=== PATIENT | female | born 1955 | race American Indian/Alaskan Native ===

== ENCOUNTER 2018-04-03 19:19 | Emergency (ER) | payer SELFPAY ==
[2018-04-03 19:32] VITALS: BMI 26.2
[2018-04-03 19:36] VITALS: TEMP 98.5
--- NOTE | 2018-04-03 19:57 | ED PDOC ---
Arrival/HPI - General Chief Complaint: Abdominal Pain Time Seen by Provider: 04/03/18 19:37 Historian: Patient - History of Present Illness Narrative History of Present Illness (Text): 04/03/18 19:54 62-year-old female presents today with a "discomfort" feeling in the chest and abdomen. Patient states intermittently for the past 3 weeks she has been having this what she describes as a heaviness feeling in the left side of the chest. Patient states symptoms seem to be worse after eating. She denies nausea vomiting diarrhea or constipation. No chest fevers or chills. She denies urinary symptoms. Patient states the pain has been worsening over the past week and has been coming more frequently. Patient states she also has been having some slight back pain. She is unable to describe the back pain but states that it does not radiate from the abdomen to the back. Patient denies numbness weakness or tingling in the extremities. No bladder or bowel incontinence. No other complaints. Symptom Onset: Gradual Symptom Course: Intermittent, Worsening Quality: Pressure (heaviness) Severity Level: Mild Past Medical History - Provider Review Nursing Documentation Reviewed: Yes - Travel History Have you recently traveled outside [place] w/in the past 3 mons?: No - Infectious Disease Hx of Infectious Diseases: None - Reproductive Menopause: Yes - Cardiac Hx Hypertension: Yes - Pulmonary Hx Respiratory Disorders: No - Neurological Hx Neurological Disorder: No - HEENT Hx HEENT Disorder: No - Renal Hx Renal Disorder: No - Endocrine/Metabolic Hx Endocrine Disorders: No - Hematological/Oncological Hx Blood Disorders: No - Integumentary Hx Dermatological Disorder: No - Musculoskeletal/Rheumatological Hx Musculoskeletal Disorders: No - Gastrointestinal Hx Gastrointestinal Disorders: No - Genitourinary/Gynecological Hx Genitourinary Disorders: No - Psychiatric Hx Psychophysiologic Disorder: No Hx Substance Use: No - Surgical History Other/Comment: myomectomy 1992 - Anesthesia Hx Anesthesia: No Hx Anesthesia Reactions: No Hx Malignant Hyperthermia: No Family/Social History - Physician Review Nursing Documentation Reviewed: Yes Family/Social History: Unknown Family HX Smoking Status: Never Smoked Hx Alcohol Use: No Hx Substance Use: No Allergies/Home Meds Allergies/Adverse Reactions: Allergies No Known Allergies Allergy (Verified 09/08/15 05:29) Home Medications: Home Meds Medication Instructions Recorded Confirmed amLODIPine [Norvasc] 10 mg PO DAILY 04/03/18 04/03/18 Review of Systems - Review of Systems Constitutional: absent: Fatigue, Fevers Respiratory: absent: SOB, Cough Cardiovascular: Chest Pain. absent: Palpitations Gastrointestinal: Abdominal Pain. absent: Constipation, Diarrhea, Nausea, Vomiting Genitourinary Female: absent: Dysuria, Frequency, Hematuria Musculoskeletal: Back Pain. absent: Arthralgias, Neck Pain Skin: absent: Rash, Pruritis Neurological: absent: Headache, Dizziness Psychiatric: absent: Anxiety, Depression Physical Exam Vital Signs Reviewed: Yes Vital Signs Temp Pulse Resp BP Pulse Ox 04/03/18 19:20 98.5 F 77 16 115/71 98 Temperature: Afebrile Blood Pressure: Normal Pulse: Regular Respiratory Rate: Normal Appearance: Positive for: Well-Appearing, Non-Toxic, Comfortable Pain Distress: None Mental Status: Positive for: Alert and Oriented X 3 - Systems Exam Head: Present: Atraumatic Mouth: Present: Moist Mucous Membranes Neck: Present: Normal Range of Motion Respiratory/Chest: Present: Clear to Auscultation, Good Air Exchange. No: Respiratory Distress, Accessory Muscle Use Cardiovascular: Present: Regular Rate and Rhythm, Normal S1, S2. No: Murmurs Abdomen: No: Tenderness, Distention, Peritoneal Signs, Rebound, Guarding Back: Present: Normal Inspection. No: CVA Tenderness, Midline Tenderness, Paraspinal Tenderness Upper Extremity: Present: Normal Inspection Lower Extremity: Present: Normal Inspection. No: Edema Neurological: Present: GCS=15, Speech Normal Skin: Present: Warm, Dry, Normal Color. No: Rashes Psychiatric: Present: Alert, Oriented x 3 Medical Decision Making ED Course and Treatment: 04/03/18 19:56 Patient is nontoxic well appearing with stable vital signs presenting with heaviness in chest and upper abdominal pain CBC: wnl CMP: wnl Lipase Wnl trop: wnl cxr; wnl Urinalysis: CAT scan FINDINGS: LUNG BASES: The lung bases appear clear. No pleural effusions are seen. LIVER: Unremarkable. GALLBLADDER AND BILE DUCTS: The gallbladder appears within normal limits. No radioopaque gallstones are seen. No biliary ductal dilatation is evident. PANCREAS: Unremarkable. SPLEEN: Unremarkable. ADRENAL GLANDS: Unremarkable. KIDNEYS, URETERS, AND BLADDER: The kidneys appear within normal limits. There is no hydronephrosis or hydroureter. No urinary calculi are seen. STOMACH AND BOWEL: Unremarkable appearance of the stomach and bowel. No evidence of bowel obstruction. No evidence suggesting enteritis or colitis. APPENDIX: No evidence of acute appendicitis on CT examination. PERITONEUM: No free fluid. No free air. LYMPH NODES: No lymphadenopathy is evident. REPRODUCTIVE: The uterus is markedly enlarged and contains multiple masses consistent with fibroids. The ovaries are not seen with certainty. VASCULATURE: No evidence of abdominal aortic aneurysm. BONES: No aggressive appearing osseous lesion. No acute osseous pathology evident. IMPRESSION: The uterus is markedly enlarged and contains multiple masses consistent with fibroids. The ovaries are not seen with certainty. Consider follow up with MRI. Patient reassessment: pt resting comfortably in er. Discussed all results with patient in depth. pt states she has hx of fibroids. asa given po case discussed with dr. estes; accepts observational status to remote tele. Impression: chest pain, abdominal pain admit observational status to remote tele . Reassessment Condition: Re-examined, Improved - RAD Interpretation Radiology Orders: 04/03/18 19:52 CHEST PORTABLE [RAD] Stat 04/03/18 19:53 ABD & PELVIS IV CONTRAST ONLY [CT] Stat - Medication Orders Current Medication Orders: Pantoprazole Sodium (Protonix Inj) 40 mg IVP STAT STA Stop: 04/03/18 19:53 Disposition/Present on Arrival - Present on Arrival Any Indicators Present on Arrival: No History of DVT/PE: No History of Uncontrolled Diabetes: No Urinary Catheter: No History of Decub. Ulcer: No History Surgical Site Infection Following: None - Disposition Have Diagnosis and Disposition been Completed?: Yes Diagnosis: Chest pain, Abdominal pain Disposition: HOSPITALIZED Disposition Time: 23:07 Patient Plan: Observation, Telemetry (remote) Patient Problems: Current Active Problems Problem Status Onset Abdominal pain Acute Chest pain Acute Condition: FAIR Discharge Instructions (ExitCare): Chest Pain (ED) Forms: [employer] ([place])
[2018-04-03 20:02] LABS: URINE BILIRUBIN NEGATIVE (NEGATIVE); URINE BLOOD TRACE-INTACT (NEGATIVE); URINE GLUCOSE (UA) NEGATIVE (NEGATIVE); URINE LEUKOCYTE ESTERASE TRACE Leu/uL (NEGATIVE); URINE PROTEIN NEGATIVE mg/dL (<30 mg/dL); URINE UROBILINOGEN 0.2 E.U./dL (<1 E.U./dL)
[2018-04-03 20:04] LABS: URINE APPEARANCE CLEAR (CLEAR); URINE COLOR LIGHT YELLOW (YELLOW)
[2018-04-03 20:13] LABS: URINE RBC 0 - 2 /hpf (0-2); URINE WBC 0 - 2 /hpf (0-6)
[2018-04-03 20:18] LABS: BASO # 0.01 K/mm3 (0.0-2.0); BASO % 0.1 % (0.0-3.0); EOS # 0.1 (0.0-0.7); EOS % 0.9 % (1.5-5.0); GRAN # 4.23 (1.4-6.5); GRAN % 57.3 % (50.0-68.0); HEMOGLOBIN 14.3 g/dL (12.0-16.0); LYMPH # 2.6 (1.2-3.4); LYMPH % 35.5 % (22.0-35.0); MEAN CELL VOLUME 92.9 fl (80.0-105.0); MEAN CORPUSCULAR HEMOGLOBIN 29.9 pg (25.0-35.0); MEAN CORPUSCULAR HGB CONC 32.1 g/dl (31.0-37.0); MEAN PLATELET VOLUME 10.2 fl (7.0-11.0); MONO # 0.5 (0.1-0.6); MONO % 6.2 % (1.0-6.0); RBC 4.79 10^6/uL (3.5-6.1); RED CELL DISTRIBUTION WIDTH 13.2 % (11.5-14.5); WHITE BLOOD COUNT 7.4 10^3/uL (4.5-11.0)
[2018-04-03 20:27] LABS: ALB/GLOB RATIO 1.3 (1.1-1.8); ALBUMIN 4.6 g/dL (3.0-4.8); ALT/SGPT 34 U/L (7-56); AST/SGOT 35 U/L (14-36); BLOOD UREA NITROGEN 13 mg/dL (7-21); CALCIUM 9.9 mg/dL (8.4-10.5); GFR NON-AFRICAN AMERICAN > 60; LIPASE 129 U/L (23-300)
[2018-04-03 20:39] LABS: TROPONIN I < 0.01 ng/mL
[2018-04-03] MEDS ORDERED: Iohexol 350 MG/100 ML VIAL ONE (21:01)
[2018-04-03 21:46] VITALS: RESP 18
--- NOTE | 2018-04-04 00:55 | CP.PCM.HP ---
<Charles Escalante - Last Filed: 04/04/18 06:32> History of Present Illness - History of Present Illness History of Present Illness: Charles Escalante, PGY1 Hospital H&P This is a 62 year old female with PMH of GERD, HTN and HLD presenting to the ED for 2 week history of intermittent chest pressure. She says chest pressure is non-exertional occurring at rest and usually begins after consuming large meals. She admits to "not chewing my food as much as I should before swallowing." She denies similar symptoms in past. She had a colonoscopy done this year which was unremarkable and an EGD done 4 years ago and was also unremarkable except for GERD. She saw her etymology teacher, Dr. Barragan 2 days ago and is scheduled for cardiac stress test on 04/12/18. She denies any previous cardiac workup includin g stress test and echo. She denies CP, SOB, fevers, headaches, nausea, vomiting, back pain, abdominal pain, diarrhea, constipation, hematochezia, numbness, tingling, swelling, recent sickness, trauma and lifestyle changes including diet change and weight loss/gain. 12 point ROS noted here, otherwise unremarkable. PMD: Dr. Prabhakar Medrano [employer] Technician: Dr. Barragan PMH: GERD, HTN, HLD Meds: amlodipine 10mg SH: denies smoking, drinking and drugs Sx: myomectomy in 1991 FH: HTN and DM All: NKDA Present on Admission - Present on Admission Any Indicators Present on Admission: No Past Patient History - Infectious Disease Hx of Infectious Diseases: None - Past Social History Smoking Status: Never Smoked - CARDIAC Hx Hypertension: Yes - PULMONARY Hx Respiratory Disorders: No - NEUROLOGICAL Hx Neurological Disorder: No - HEENT Hx HEENT Problems: No - RENAL Hx Chronic Kidney Disease: No - ENDOCRINE/METABOLIC Hx Endocrine Disorders: No - HEMATOLOGICAL/ONCOLOGICAL Hx Blood Disorders: No - INTEGUMENTARY Hx Dermatological Problems: No - MUSCULOSKELETAL/RHEUMATOLOGICAL Hx Musculoskeletal Disorders: No - GASTROINTESTINAL Hx Gastrointestinal Disorders: No - GENITOURINARY/GYNECOLOGICAL Hx Genitourinary Disorders: No - PSYCHIATRIC Hx Psychophysiologic Disorder: No Hx Substance Use: No - SURGICAL HISTORY Other/Comment: myomectomy 1991 - ANESTHESIA Hx Anesthesia: No Hx Anesthesia Reactions: No Hx Malignant Hyperthermia: No Meds Allergies/Adverse Reactions: Allergies Allergy/AdvReac Type Severity Reaction Status Date / Time No Known Allergies Allergy Verified 09/08/15 05:29 Physical Exam - Constitutional Appears: No Acute Distress - Head Exam Head Exam: ATRAUMATIC, NORMAL INSPECTION - Eye Exam Eye Exam: EOMI Pupil Exam: PERRL - ENT Exam ENT Exam: Mucous Membranes Moist - Respiratory Exam Respiratory Exam: Clear to Auscultation Bilateral, NORMAL BREATHING PATTERN. absent: Accessory Muscle Use, Wheezes, Respiratory Distress - Cardiovascular Exam Cardiovascular Exam: RRR, +S1, +S2 - GI/Abdominal Exam GI & Abdominal Exam: Normal Bowel Sounds, Soft. absent: Firm, Guarding, Tenderness - Extremities Exam Extremities exam: Positive for: pedal pulses present. Negative for: calf tender ness, tenderness - Back Exam Back exam: NORMAL INSPECTION. absent: CVA tenderness (L), CVA tenderness (R) - Neurological Exam Neurological exam: Alert, Oriented x3 - Skin Skin Exam: Normal Color, Warm Results - Vital Signs Recent Vital Signs: Last Vital Signs Temp 98.5 F 04/03/18 19:20 Pulse 75 04/03/18 23:18 Resp 18 04/03/18 23:18 BP 115/82 04/03/18 23:18 Pulse Ox 100 04/03/18 23:18 - Labs Result Diagrams: 04/03/18 19:45 04/03/18 19:45 Labs: Laboratory Results - last 24 hr 04/03/18 04/03/18 04/03/18 19:45 19:45 19:55 WBC 7.4 RBC 4.79 Hgb 14.3 Hct 44.5 MCV 92.9 MCH 29.9 MCHC 32.1 RDW 13.2 Plt Count 299 MPV 10.2 Gran % 57.3 Lymph % (Auto) 35.5 H [place] % (Auto) 6.2 H Eos % (Auto) 0.9 L Baso % (Auto) 0.1 Gran # 4.23 Lymph # (Auto) 2.6 [place] # (Auto) 0.5 Eos # (Auto) 0.1 Baso # (Auto) 0.01 Sodium 140 Potassium 4.2 Chloride 103 Carbon Dioxide 26 Anion Gap 15 BUN 13 Creatinine 0.8 Est GFR ( Amer) > 60 Est GFR (Non-Af Amer) > 60 Random Glucose 114 H Calcium 9.9 Total Bilirubin 0.5 AST 35 ALT 34 Alkaline Phosphatase 85 Lactate Dehydrogenase 481 Total Creatine Kinase 83 Troponin I < 0.01 Total Protein 8.3 Albumin 4.6 Globulin 3.7 Albumin/Globulin Ratio 1.3 Lipase 129 Urine Color Light yellow Urine Appearance Clear Urine pH 6.0 Ur Specific [place] 1.010 Urine Protein Negative Urine Glucose (UA) Negative Urine Ketones Negative Urine Blood Trace-intact H Urine Nitrate Negative Urine Bilirubin Negative Urine Urobilinogen 0.2 Ur Leukocyte Esterase Trace H Urine RBC 0 - 2 Urine WBC 0 - 2 Ur Epithelial Cells None Assessment & Plan - Assessment and Plan (Free Text) Assessment: This is a 62 year old female with PMH of GERD, HTN and HLD presenting to the ED for 2 week history of intermittent chest pressure. Plan: Chest pressure -initial EKG showed NSR at 81bpm, no ST changes -initial troponin <0.01 -serial EKG, trending troponins pending -CTAP -A1c, thyroid pending -echo pending -NPO for now pending cardiology evaluation -Cardio on consult, Dr. Cuevas Hx of HTN -continue home amlodipine Hx of HLD -lipid panel pending Hx of GERD -not on home GERD medication PPX with SCD and pepcid Patient seen and case discussed with attending, Dr. Marley <Anthony Marley - Last Filed: 04/04/18 19:49> Results - Vital Signs Recent Vital Signs: Last Vital Signs Temp 98.5 F 04/03/18 19:20 Pulse 68 04/04/18 11:04 Resp 18 04/04/18 11:04 BP 108/68 04/04/18 11:04 Pulse Ox 100 04/04/18 11:04 - Labs Result Diagrams: 04/04/18 06:50 04/04/18 06:50 Labs: Laboratory Results - last 24 hr 04/03/18 04/03/18 04/03/18 19:45 19:45 19:55 WBC 7.4 RBC 4.79 Hgb 14.3 Hct 44.5 MCV 92.9 MCH 29.9 MCHC 32.1 RDW 13.2 Plt Count 299 MPV 10.2 Gran % 57.3 Lymph % (Auto) 35.5 H [place] % (Auto) 6.2 H Eos % (Auto) 0.9 L Baso % (Auto) 0.1 Gran # 4.23 Lymph # (Auto) 2.6 [place] # (Auto) 0.5 Eos # (Auto) 0.1 Baso # (Auto) 0.01 Sodium 140 Potassium 4.2 Chloride 103 Carbon Dioxide 26 Anion Gap 15 BUN 13 Creatinine 0.8 Est GFR ( Amer) > 60 Est GFR (Non-Af Amer) > 60 Random Glucose 114 H Hemoglobin A1c Calcium 9.9 Phosphorus Magnesium Total Bilirubin 0.5 AST 35 ALT 34 Alkaline Phosphatase 85 Lactate Dehydrogenase 481 Total Creatine Kinase 83 Troponin I < 0.01 Total Protein 8.3 Albumin 4.6 Globulin 3.7 Albumin/Globulin Ratio 1.3 Triglycerides Cholesterol LDL Cholesterol Direct HDL Cholesterol Lipase 129 Thyroxine (T4) TSH 3rd Generation Urine Color Light yellow Urine Appearance Clear Urine pH 6.0 Ur Specific [place] 1.010 Urine Protein Negative Urine Glucose (UA) Negative Urine Ketones Negative Urine Blood Trace-intact H Urine Nitrate Negative Urine Bilirubin Negative Urine Urobilinogen 0.2 Ur Leukocyte Esterase Trace H Urine RBC 0 - 2 Urine WBC 0 - 2 Ur Epithelial Cells None 04/04/18 04/04/18 04/04/18 06:50 06:50 06:50 WBC 5.9 D RBC 4.81 Hgb 14.2 Hct 44.2 MCV 91.9 MCH 29.5 MCHC 32.1 RDW 13.3 Plt Count 287 MPV 10.3 Gran % 52.6 Lymph % (Auto) 41.1 H [place] % (Auto) 5.1 Eos % (Auto) 1.0 L Baso % (Auto) 0.2 Gran # 3.12 Lymph # (Auto) 2.4 [place] # (Auto) 0.3 Eos # (Auto) 0.1 Baso # (Auto) 0.01 Sodium 139 Potassium 4.1 Chloride 106 Carbon Dioxide 28 Anion Gap 9 L BUN 11 Creatinine 0.8 Est GFR ( Amer) > 60 Est GFR (Non-Af Amer) > 60 Random Glucose 97 Hemoglobin A1c 5.1 Calcium 9.3 Phosphorus 3.3 Magnesium 2.2 Total Bilirubin 0.6 AST 30 ALT 35 Alkaline Phosphatase 73 Lactate Dehydrogenase Total Creatine Kinase Troponin I < 0.01 Total Protein 7.9 Albumin 4.2 Globulin 3.7 Albumin/Globulin Ratio 1.1 Triglycerides 76 Cholesterol 206 H LDL Cholesterol Direct 142 H HDL Cholesterol 39 Lipase Thyroxine (T4) TSH 3rd Generation Urine Color Urine Appearance Urine pH Ur Specific [place] Urine Protein Urine Glucose (UA) Urine Ketones Urine Blood Urine Nitrate Urine Bilirubin Urine Urobilinogen Ur Leukocyte Esterase Urine RBC Urine WBC Ur Epithelial Cells 04/04/18 06:50 WBC RBC Hgb Hct MCV MCH MCHC RDW Plt Count MPV Gran % Lymph % (Auto) [place] % (Auto) Eos % (Auto) Baso % (Auto) Gran # Lymph # (Auto) [place] # (Auto) Eos # (Auto) Baso # (Auto) Sodium Potassium Chloride Carbon Dioxide Anion Gap BUN Creatinine Est GFR ( Amer) Est GFR (Non-Af Amer) Random Glucose Hemoglobin A1c Calcium Phosphorus Magnesium Total Bilirubin AST ALT Alkaline Phosphatase Lactate Dehydrogenase Total Creatine Kinase Troponin I Total Protein Albumin Globulin Albumin/Globulin Ratio Triglycerides Cholesterol LDL Cholesterol Direct HDL Cholesterol Lipase Thyroxine (T4) 7.3 TSH 3rd Generation 1.27 Urine Color Urine Appearance Urine pH Ur Specific [place] Urine Protein Urine Glucose (UA) Urine Ketones Urine Blood Urine Nitrate Urine Bilirubin Urine Urobilinogen Ur Leukocyte Esterase Urine RBC Urine WBC Ur Epithelial Cells Attending/Attestation - Attestation I have personally seen and examined this patient.: Yes I have fully participated in the care of the patient.: Yes I have reviewed all pertinent clinical information: Yes
[2018-04-04 05:43] VITALS: O2SAT 100
[2018-04-04 07:18] LABS: BASO # 0.01 K/mm3 (0.0-2.0); BASO % 0.2 % (0.0-3.0); EOS # 0.1 (0.0-0.7); GRAN # 3.12 (1.4-6.5); GRAN % 52.6 % (50.0-68.0); HEMOGLOBIN 14.2 g/dL (12.0-16.0); LYMPH # 2.4 (1.2-3.4); LYMPH % 41.1 % (22.0-35.0); MEAN CELL VOLUME 91.9 fl (80.0-105.0); MEAN CORPUSCULAR HEMOGLOBIN 29.5 pg (25.0-35.0); MEAN CORPUSCULAR HGB CONC 32.1 g/dl (31.0-37.0); MEAN PLATELET VOLUME 10.3 fl (7.0-11.0); MONO # 0.3 (0.1-0.6); MONO % 5.1 % (1.0-6.0); RBC 4.81 10^6/uL (3.5-6.1); RED CELL DISTRIBUTION WIDTH 13.3 % (11.5-14.5); WHITE BLOOD COUNT 5.9 10^3/uL (4.5-11.0)
[2018-04-04 07:32] LABS: ALB/GLOB RATIO 1.1 (1.1-1.8); ALBUMIN 4.2 g/dL (3.0-4.8); ALT/SGPT 35 U/L (7-56); AST/SGOT 30 U/L (14-36); BLOOD UREA NITROGEN 11 mg/dL (7-21); CALCIUM 9.3 mg/dL (8.4-10.5); GFR NON-AFRICAN AMERICAN > 60; HDL CHOLESTEROL 39 mg/dL (29-60)
[2018-04-04 07:43] LABS: LDL CHOLESTEROL 142 mg/dL (0-129); TROPONIN I < 0.01 ng/mL
[2018-04-04 07:50] LABS: T4 7.3 ug/dL (5.5-11.0)
--- NOTE | 2018-04-04 08:13 | CT ---
Date of service: 04/03/2018 PROCEDURE: CT Abdomen and Pelvis with and without intravenous contrast HISTORY: upper abdominal pain COMPARISON: None. TECHNIQUE: Axial images of the abdomen were obtained in the pre contrast, portal venous and delayed phases of enhancement. Coronal and sagittal reformats were generated. Contrast dose: Radiation dose: Total exam DLP = 327.75 mGy-cm. This CT exam was performed using one or more of the following dose reduction techniques: Automated exposure control, adjustment of the mA and/or kV according to patient size, and/or use of iterative reconstruction technique. FINDINGS: LOWER THORAX: Unremarkable. LIVER: Unremarkable. No gross lesion or ductal dilatation. GALLBLADDER AND BILE DUCTS: Unremarkable. PANCREAS: Unremarkable. No gross lesion or ductal dilatation. SPLEEN: Unremarkable. ADRENALS: Unremarkable. No mass. KIDNEYS AND URETERS: Unremarkable. No hydronephrosis. No solid mass. VASCULATURE: Unremarkable. No aortic aneurysm. No aortic atherosclerotic calcification or mural plaque present. BOWEL: Unremarkable. No obstruction. No gross mural thickening. APPENDIX: Normal appendix. PERITONEUM: Unremarkable. No free fluid. No free air. LYMPH NODES: Unremarkable. No enlarged lymph nodes. BLADDER: Unremarkable. REPRODUCTIVE: Multiple cystic masses within the uterus versus solid masses. Findings could represent a leiomyomatous uterus though ovarian cystic masses are not excluded and correlation with pelvic MRI with and without contrast is recommended to exclude ovarian malignancy. BONES: No acute fracture. OTHER FINDINGS: None. IMPRESSION: Multiple cystic masses within the uterus versus solid masses. Findings could represent a leiomyomatous uterus though ovarian cystic masses are not excluded and correlation with pelvic MRI with and without contrast is recommended to exclude ovarian malignancy.
--- NOTE | 2018-04-04 09:08 | RAD ---
Date of service: 04/03/2018 HISTORY: heaviness in chest COMPARISON: No prior. FINDINGS: LUNGS: Small bibasilar opacities likely atelectasis. Otherwise no evidence of infiltrate or consolidation in the lungs. PLEURA: No significant pleural effusion identified, no pneumothorax apparent. CARDIOVASCULAR: No aortic atherosclerotic calcification present. Normal cardiac size. No pulmonary vascular congestion. OSSEOUS STRUCTURES: No significant abnormalities. VISUALIZED UPPER ABDOMEN: Normal. OTHER FINDINGS: None. IMPRESSION: Small bibasilar opacities likely atelectasis.
--- NOTE | 2018-04-04 09:15 | CARD ---
APPROVED REPORT Date of service: 04/03/2018 EKG Measurement Heart [id number] <Conclusion> Normal sinus rhythm Voltage criteria for left ventricular hypertrophy Nonspecific T wave abnormality Abnormal ECG
--- NOTE | 2018-04-04 10:25 | CARD ---
APPROVED REPORT Date of service: 04/04/2018 EKG Measurement Heart [id number] <Conclusion> Normal sinus rhythm Moderate voltage criteria for LVH, may be normal variant ST elevation, consider early repolarization, pericarditis, or injury Nonspecific ST and T wave abnormality Abnormal ECG
[2018-04-04 11:05] VITALS: BP 108/68; PULSE 68
--- NOTE | 2018-04-04 16:51 | CP.PCM.DIS ---
<Kenyatta Mcneil - Last Filed: 04/04/18 16:52> Provider - Provider Date of Admission: 04/04/18 Attending physician: Dr. Mosqueda Primary care physician: None Consults: 04/03/18 23:40 Cardiology Consult Routine Comment: Consulting Provider: George Cuevas Consulting Physician: George Cuevas Reason for Consult: ACS rule out Time Spent in preparation of Discharge (in minutes): 60 Diagnosis - Discharge Diagnosis (1) Chest pain Status: Acute Hospital Course - Lab Results Lab Results: Most Recent Lab Values WBC 5.9 10^3/uL (4.5-11.0) D 04/04/18 06:50 RBC 4.81 10^6/uL (3.5-6.1) 04/04/18 06:50 Hgb 14.2 g/dL (12.0-16.0) 04/04/18 06:50 Hct 44.2 % (36.0-48.0) 04/04/18 06:50 MCV 91.9 fl (80.0-105.0) 04/04/18 06:50 MCH 29.5 pg (25.0-35.0) 04/04/18 06:50 MCHC 32.1 g/dl (31.0-37.0) 04/04/18 06:50 RDW 13.3 % (11.5-14.5) 04/04/18 06:50 Plt Count 287 10^3/uL (120.0-450.0) 04/04/18 06:50 MPV 10.3 fl (7.0-11.0) 04/04/18 06:50 Gran % 52.6 % (50.0-68.0) 04/04/18 06:50 Lymph % (Auto) 41.1 % (22.0-35.0) H 04/04/18 06:50 Burt % (Auto) 5.1 % (1.0-6.0) 04/04/18 06:50 Eos % (Auto) 1.0 % (1.5-5.0) L 04/04/18 06:50 Baso % (Auto) 0.2 % (0.0-3.0) 04/04/18 06:50 Gran # 3.12 (1.4-6.5) 04/04/18 06:50 Lymph # (Auto) 2.4 (1.2-3.4) 04/04/18 06:50 Burt # (Auto) 0.3 (0.1-0.6) 04/04/18 06:50 Eos # (Auto) 0.1 (0.0-0.7) 04/04/18 06:50 Baso # (Auto) 0.01 K/mm3 (0.0-2.0) 04/04/18 06:50 Sodium 139 mmol/L (132-148) 04/04/18 06:50 Potassium 4.1 mmol/L (3.6-5.0) 04/04/18 06:50 Chloride 106 mmol/L (98-107) 04/04/18 06:50 Carbon Dioxide 28 mmol/L (21-33) 04/04/18 06:50 Anion Gap 9 (10-20) L 04/04/18 06:50 BUN 11 mg/dL (7-21) 04/04/18 06:50 Creatinine 0.8 mg/dl (0.7-1.2) 04/04/18 06:50 Est GFR ( Amer) > 60 04/04/18 06:50 Est GFR (Non-Af Amer) > 60 04/04/18 06:50 Random Glucose 97 mg/dL (70-110) 04/04/18 06:50 Hemoglobin A1c 5.1 % (4.2-6.5) 04/04/18 06:50 Calcium 9.3 mg/dL (8.4-10.5) 04/04/18 06:50 Phosphorus 3.3 mg/dL (2.5-4.5) 04/04/18 06:50 Magnesium 2.2 mg/dL (1.7-2.2) 04/04/18 06:50 Total Bilirubin 0.6 mg/dL (0.2-1.3) 04/04/18 06:50 AST 30 U/L (14-36) 04/04/18 06:50 ALT 35 U/L (7-56) 04/04/18 06:50 Alkaline Phosphatase 73 U/L (38-126) 04/04/18 06:50 Lactate Dehydrogenase 481 U/L (333-699) 04/03/18 19:45 Total Creatine Kinase 83 U/L (35-230) 04/03/18 19:45 Troponin I < 0.01 ng/mL 04/04/18 06:50 Total Protein 7.9 g/dL (5.8-8.3) 04/04/18 06:50 Albumin 4.2 g/dL (3.0-4.8) 04/04/18 06:50 Globulin 3.7 gm/dL 04/04/18 06:50 Albumin/Globulin Ratio 1.1 (1.1-1.8) 04/04/18 06:50 Triglycerides 76 mg/dL (35-160) 04/04/18 06:50 Cholesterol 206 mg/dL (130-200) H 04/04/18 06:50 LDL Cholesterol Direct 142 mg/dL (0-129) H 04/04/18 06:50 HDL Cholesterol 39 mg/dL (29-60) 04/04/18 06:50 Lipase 129 U/L (23-300) 04/03/18 19:45 Thyroxine (T4) 7.3 ug/dL (5.5-11.0) 04/04/18 06:50 TSH 3rd Generation 1.27 mIU/mL (0.46-4.68) 04/04/18 06:50 Urine Color Light yellow (YELLOW) 04/03/18 19:55 Urine Appearance Clear (CLEAR) 04/03/18 19:55 Urine pH 6.0 (4.7-8.0) 04/03/18 19:55 Ur Specific Faison 1.010 (1.005-1.035) 04/03/18 19:55 Urine Protein Negative mg/dL (<30 mg/dL) 04/03/18 19:55 Urine Glucose (UA) Negative mg/dL (NEGATIVE) 04/03/18 19:55 Urine Ketones Negative mg/dL (NEGATIVE) 04/03/18 19:55 Urine Blood Trace-intact (NEGATIVE) H 04/03/18 19:55 Urine Nitrate Negative (NEGATIVE) 04/03/18 19:55 Urine Bilirubin Negative (NEGATIVE) 04/03/18 19:55 Urine Urobilinogen 0.2 E.U./dL (<1 E.U./dL) 04/03/18 19:55 Ur Leukocyte Esterase Trace Lorenzo/uL (NEGATIVE) H 04/03/18 19:55 Urine RBC 0 - 2 /hpf (0-2) 04/03/18 19:55 Urine WBC 0 - 2 /hpf (0-6) 04/03/18 19:55 Ur Epithelial Cells None /hpf (0-5) 04/03/18 19:55 - Hospital Course Hospital Course: Kenyatta Mcneil, PGY-1, Internal Medicine Discharge Summary for Dr. Mosqueda 62 year old female with past medical history of GERD, HTN, and HLD presented for 2 weeks history of intermittent chest pressure that was non-exertional and began after consuming large meals. Patient denied similar symptoms in the past. Patient's initial EKG showed NSR with HR of 81. Repeat EKG showed mild LVH and nonspecific T wave changes. Initial troponin was <0.01. Patient had plan to work up with echocardiogram. Patient had outpatient stress test ordered for 04/12/18. Dr. Cuevas, Cardiology, was consulted for recommendations. Abdominal CT showed multiple cystic masses in the uterus vs. solid masses. Patient wanted to sign out AMA. Patient was explained the risks of leaving AMA including injury, infection, and . Patient was told to follow up closely with her cps team lead and WAREHOUSE TECHNICIAN and told to return to the emergency department if she had recurrent or worsening symptoms. This is a brief summary of the events that occurred at this hospital visit. For further details, please refer to the hospital documentation. - Date & Time of H&P Date of H&P: 04/04/18 Time of H&P: 16:53 Discharge Exam - Head Exam Head Exam: ATRAUMATIC, NORMAL INSPECTION - Eye Exam Eye Exam: EOMI, PERRL - Respiratory Exam Respiratory Exam: Clear to PA & Lateral, NORMAL BREATHING PATTERN - Cardiovascular Exam Cardiovascular Exam: REGULAR RHYTHM - GI/Abdominal Exam GI & Abdominal Exam: Normal Bowel Sounds - Extremities Exam Extremities exam: full ROM - Neurological Exam Neurological exam: CN II-XII Intact, Oriented x3 Discharge Plan - Follow Up Plan Condition: FAIR Disposition: AGAINST MEDICAL ADVICE <Gagandeep Mosqueda - Last Filed: 04/04/18 17:22> Provider - Provider Consults: 04/03/18 23:40 Cardiology Consult Routine Comment: Consulting Provider: George Cuevas Consulting Physician: George Cuevas Reason for Consult: ACS rule out Hospital Course - Lab Results Lab Results: Most Recent Lab Values WBC 5.9 10^3/uL (4.5-11.0) D 04/04/18 06:50 RBC 4.81 10^6/uL (3.5-6.1) 04/04/18 06:50 Hgb 14.2 g/dL (12.0-16.0) 04/04/18 06:50 Hct 44.2 % (36.0-48.0) 04/04/18 06:50 MCV 91.9 fl (80.0-105.0) 04/04/18 06:50 MCH 29.5 pg (25.0-35.0) 04/04/18 06:50 MCHC 32.1 g/dl (31.0-37.0) 04/04/18 06:50 RDW 13.3 % (11.5-14.5) 04/04/18 06:50 Plt Count 287 10^3/uL (120.0-450.0) 04/04/18 06:50 MPV 10.3 fl (7.0-11.0) 04/04/18 06:50 Gran % 52.6 % (50.0-68.0) 04/04/18 06:50 Lymph % (Auto) 41.1 % (22.0-35.0) H 04/04/18 06:50 Burt % (Auto) 5.1 % (1.0-6.0) 04/04/18 06:50 Eos % (Auto) 1.0 % (1.5-5.0) L 04/04/18 06:50 Baso % (Auto) 0.2 % (0.0-3.0) 04/04/18 06:50 Gran # 3.12 (1.4-6.5) 04/04/18 06:50 Lymph # (Auto) 2.4 (1.2-3.4) 04/04/18 06:50 Burt # (Auto) 0.3 (0.1-0.6) 04/04/18 06:50 Eos # (Auto) 0.1 (0.0-0.7) 04/04/18 06:50 Baso # (Auto) 0.01 K/mm3 (0.0-2.0) 04/04/18 06:50 Sodium 139 mmol/L (132-148) 04/04/18 06:50 Potassium 4.1 mmol/L (3.6-5.0) 04/04/18 06:50 Chloride 106 mmol/L (98-107) 04/04/18 06:50 Carbon Dioxide 28 mmol/L (21-33) 04/04/18 06:50 Anion Gap 9 (10-20) L 04/04/18 06:50 BUN 11 mg/dL (7-21) 04/04/18 06:50 Creatinine 0.8 mg/dl (0.7-1.2) 04/04/18 06:50 Est GFR ( Amer) > 60 04/04/18 06:50 Est GFR (Non-Af Amer) > 60 04/04/18 06:50 Random Glucose 97 mg/dL (70-110) 04/04/18 06:50 Hemoglobin A1c 5.1 % (4.2-6.5) 04/04/18 06:50 Calcium 9.3 mg/dL (8.4-10.5) 04/04/18 06:50 Phosphorus 3.3 mg/dL (2.5-4.5) 04/04/18 06:50 Magnesium 2.2 mg/dL (1.7-2.2) 04/04/18 06:50 Total Bilirubin 0.6 mg/dL (0.2-1.3) 04/04/18 06:50 AST 30 U/L (14-36) 04/04/18 06:50 ALT 35 U/L (7-56) 04/04/18 06:50 Alkaline Phosphatase 73 U/L (38-126) 04/04/18 06:50 Lactate Dehydrogenase 481 U/L (333-699) 04/03/18 19:45 Total Creatine Kinase 83 U/L (35-230) 04/03/18 19:45 Troponin I < 0.01 ng/mL 04/04/18 06:50 Total Protein 7.9 g/dL (5.8-8.3) 04/04/18 06:50 Albumin 4.2 g/dL (3.0-4.8) 04/04/18 06:50 Globulin 3.7 gm/dL 04/04/18 06:50 Albumin/Globulin Ratio 1.1 (1.1-1.8) 04/04/18 06:50 Triglycerides 76 mg/dL (35-160) 04/04/18 06:50 Cholesterol 206 mg/dL (130-200) H 04/04/18 06:50 LDL Cholesterol Direct 142 mg/dL (0-129) H 04/04/18 06:50 HDL Cholesterol 39 mg/dL (29-60) 04/04/18 06:50 Lipase 129 U/L (23-300) 04/03/18 19:45 Thyroxine (T4) 7.3 ug/dL (5.5-11.0) 04/04/18 06:50 TSH 3rd Generation 1.27 mIU/mL (0.46-4.68) 04/04/18 06:50 Urine Color Light yellow (YELLOW) 04/03/18 19:55 Urine Appearance Clear (CLEAR) 04/03/18 19:55 Urine pH 6.0 (4.7-8.0) 04/03/18 19:55 Ur Specific Faison 1.010 (1.005-1.035) 04/03/18 19:55 Urine Protein Negative mg/dL (<30 mg/dL) 04/03/18 19:55 Urine Glucose (UA) Negative mg/dL (NEGATIVE) 04/03/18 19:55 Urine Ketones Negative mg/dL (NEGATIVE) 04/03/18 19:55 Urine Blood Trace-intact (NEGATIVE) H 04/03/18 19:55 Urine Nitrate Negative (NEGATIVE) 04/03/18 19:55 Urine Bilirubin Negative (NEGATIVE) 04/03/18 19:55 Urine Urobilinogen 0.2 E.U./dL (<1 E.U./dL) 04/03/18 19:55 Ur Leukocyte Esterase Trace Lorenzo/uL (NEGATIVE) H 04/03/18 19:55 Urine RBC 0 - 2 /hpf (0-2) 04/03/18 19:55 Urine WBC 0 - 2 /hpf (0-6) 04/03/18 19:55 Ur Epithelial Cells None /hpf (0-5) 04/03/18 19:55
== END 2018-04-04 12:42 | disposition left against medical advice (07) ==
LOC: ED 19:19 → UNDOADMOB 23:12 → ERH 23:12 → ED 04-04 12:42
DX: R07.9 Chest pain, unspecified (principal); R10.9 Unspecified abdominal pain; I10 Essential (primary) hypertension
CPT/HCPCS: 71045; 74177; 80053; 80061; 81001; 82550; 83036; 83615; 83690; 83735; 84100; 84436; 84443; 84484; 85025; 87086; 93005; 96374; 99284; C9113; Q9967

== ENCOUNTER 2018-08-05 05:22 | Emergency (ER) | payer MEDICARE ==
[2018-08-05 05:23] VITALS: BMI 26.2
[2018-08-05 05:36] VITALS: TEMP 97.8
--- NOTE | 2018-08-05 05:47 | ED PDOC ---
Arrival/HPI - General Chief Complaint: Lower Extremity Problem/Injury Historian: Patient - History of Present Illness Narrative History of Present Illness (Text): 08/05/18 05:40 63 year old female, whose past medical history includes hypertension, presents to the emergency department complaining of right calf pain that woke her up 3-4 hours prior to arrival. Patient describes the pain as a cramp-like sensation and reports also a "tingling" sensation. Patient reports recent travel to [place] 2 months ago. Patient states she had a similar episode in [place] and received an xray. Patient currently denies any pain at present time. Patient is able to walk without any difficulty. Patient denies any trauma, falls, weakness, fever, chills, chest pain, shortness of breath, nausea, vomiting, diarrhea, urinary symptoms, back pain, neck pain, headache, dizziness, or any other complaints. PMD: Dr. Medrano Time/Duration: Other (3-4 hours ago) Symptom Onset: Sudden Symptom Course: Improving Activities at Onset: Sleeping Context: Home Past Medical History - Provider Review Nursing Documentation Reviewed: Yes - Infectious Disease Hx of Infectious Diseases: None - Cardiac Hx Cardiac Disorders: Yes Hx Hypertension: Yes - Pulmonary Hx Respiratory Disorders: No - Neurological Hx Neurological Disorder: No - HEENT Hx HEENT Disorder: No - Renal Hx Renal Disorder: No - Endocrine/Metabolic Hx Endocrine Disorders: No - Hematological/Oncological Hx Blood Disorders: No - Integumentary Hx Dermatological Disorder: No - Musculoskeletal/Rheumatological Hx Musculoskeletal Disorders: No - Gastrointestinal Hx Gastrointestinal Disorders: No - Genitourinary/Gynecological Hx Genitourinary Disorders: No - Psychiatric Hx Psychophysiologic Disorder: No Hx Substance Use: No - Surgical History Other/Comment: myomectomy 1992 - Anesthesia Hx Anesthesia: No Hx Anesthesia Reactions: No Hx Malignant Hyperthermia: No Family/Social History - Physician Review Nursing Documentation Reviewed: Yes Family/Social History: No Known Family HX Smoking Status: Never Smoked Hx Alcohol Use: No Hx Substance Use: No Allergies/Home Meds Allergies/Adverse Reactions: Allergies No Known Allergies Allergy (Verified 09/08/15 05:29) Home Medications: Home Meds Medication Instructions Recorded Confirmed amLODIPine [Norvasc] 10 mg PO DAILY 04/03/18 08/05/18 Review of Systems - Physician Review All systems were reviewed & negative as marked: Yes - Review of Systems Constitutional: absent: Fevers, Other (chills) Respiratory: absent: SOB Cardiovascular: Calf Pain. absent: Chest Pain Gastrointestinal: absent: Diarrhea, Nausea, Vomiting Genitourinary Female: absent: Dysuria, Frequency, Hematuria Musculoskeletal: absent: Back Pain, Neck Pain Neurological: absent: Headache, Dizziness Physical Exam Vital Signs Reviewed: Yes Vital Signs Temp Pulse Resp BP Pulse Ox 08/05/18 05:33 97.8 F 77 18 114/65 98 Temperature: Afebrile Blood Pressure: Normal Pulse: Regular Respiratory Rate: Normal Appearance: Positive for: Well-Appearing, Non-Toxic, Comfortable Pain Distress: None Mental Status: Positive for: Alert and Oriented X 3 - Systems Exam Head: Present: Atraumatic, Normocephalic Pupils: Present: PERRL Extroacular Muscles: Present: EOMI Conjunctiva: Present: Normal Mouth: Present: Moist Mucous Membranes Neck: Present: Normal Range of Motion Respiratory/Chest: Present: Clear to Auscultation, Good Air Exchange. No: Respiratory Distress, Accessory Muscle Use Cardiovascular: Present: Regular Rate and Rhythm, Normal S1, S2. No: Murmurs Abdomen: No: Tenderness, Distention, Peritoneal Signs Back: Present: Normal Inspection Upper Extremity: Present: Normal Inspection. No: Cyanosis, Edema Lower Extremity: Present: Normal Inspection. No: Edema Neurological: Present: GCS=15, Speech Normal Skin: Present: Warm, Dry, Normal Color. No: Rashes Psychiatric: Present: Alert, Oriented x 3 Medical Decision Making ED Course and Treatment: 08/05/18 05:48 Impression: 63 year old female presents complaining of right calf pain and tingling that work her up 3-4 hours prior to arrival. Plan: -- Labs -- Duplex LE US -- Reassess and disposition Prior Visits: Notes and results from previous visits were reviewed. Progress Notes: 08/05/18 07:05 Case signed out to Dr. Deo Barone pending Duplex LE US, reassessment/disposition. - Lab Interpretations I have reviewed the lab results: Yes - Scribe Statement The provider has reviewed the documentation as recorded by the Scribe Avinash Jean Baptiste Provider Scribe Attestation: All medical record entries made by the Scribe were at my direction and personally dictated by me. I have reviewed the chart and agree that the record accurately reflects my personal performance of the history, physical exam, medical decision making, and the department course for this patient. I have also personally directed, reviewed, and agree with the discharge instructions and disposition. Disposition/Present on Arrival - Present on Arrival Any Indicators Present on Arrival: No History of DVT/PE: No History of Uncontrolled Diabetes: No Urinary Catheter: No History of Decub. Ulcer: No History Surgical Site Infection Following: None - Disposition Have Diagnosis and Disposition been Completed?: No Diagnosis: Leg pain, right Disposition Time: 07:00 Condition: STABLE Forms: [employer] (Frisian)
[2018-08-05 06:06] LABS: EOS # 0.1 (0.0-0.7); HEMOGLOBIN 13.4 g/dL (12.0-16.0); LYMPH # 1.1 (1.2-3.4); LYMPH % 21.4 % (22.0-35.0); MEAN CELL VOLUME 92.4 fl (80.0-105.0); MEAN CORPUSCULAR HEMOGLOBIN 29.8 pg (25.0-35.0); MEAN CORPUSCULAR HGB CONC 32.3 g/dl (31.0-37.0); MEAN PLATELET VOLUME 10.4 fl (7.0-11.0); MONO # 0.2 (0.1-0.6); MONO % 3.9 % (1.0-6.0); RBC 4.49 10^6/uL (3.5-6.1); RED CELL DISTRIBUTION WIDTH 13.2 % (11.5-14.5); WHITE BLOOD COUNT 5.2 10^3/uL (4.5-11.0)
[2018-08-05 06:15] LABS: ALB/GLOB RATIO 1.3 (1.1-1.8); ALBUMIN 4.2 g/dL (3.0-4.8); ALT/SGPT 25 U/L (7-56); AST/SGOT 32 U/L (14-36); BLOOD UREA NITROGEN 13 mg/dL (7-21); CALCIUM 9.4 mg/dL (8.4-10.5); GFR NON-AFRICAN AMERICAN > 60
--- NOTE | 2018-08-05 07:29 | ED PDOC ---
Physical Exam Vital Signs Reviewed: Yes Vital Signs Temp Pulse Resp BP Pulse Ox 08/05/18 05:33 97.8 F 77 18 114/65 98 Temperature: Afebrile Blood Pressure: Normal Pulse: Regular Respiratory Rate: Normal Appearance: Positive for: Well-Appearing, Non-Toxic, Comfortable Mental Status: Positive for: Alert and Oriented X 3 - Systems Exam Head: Present: Atraumatic, Normocephalic Pupils: Present: PERRL Extroacular Muscles: Present: EOMI Conjunctiva: Present: Normal Mouth: Present: Moist Mucous Membranes Neck: Present: Normal Range of Motion. No: Meningeal Signs, MIDLINE TENDERNESS, Lymphadenopathy Respiratory/Chest: Present: Clear to Auscultation, Good Air Exchange. No: Respiratory Distress, Accessory Muscle Use Cardiovascular: Present: Regular Rate and Rhythm, Normal S1, S2. No: Murmurs Abdomen: No: Tenderness, Distention, Peritoneal Signs Back: Present: Normal Inspection. No: CVA Tenderness, Midline Tenderness Upper Extremity: Present: Normal Inspection, NORMAL PULSES, Neurovascularly Intact. No: Cyanosis, Edema Lower Extremity: Present: Normal Inspection, NORMAL PULSES, Neurovascularly Intact, Other (negative thompsons). No: Edema, Tenderness Neurological: Present: GCS=15, Speech Normal Skin: Present: Warm, Dry, Normal Color. No: Rashes Psychiatric: Present: Alert, Oriented x 3 Medical Decision Making ED Course and Treatment: 08/05/18 07:29 Case signed out to me by Dr. Yi. Pending RLE doppler. 08/05/18 07:43 Pt notes resolution of pain. No back pain or signs of cauda-equina. US negative. Good n/v status b/l LE. No signs of erythema or crepitus or infection. given return indications and f/u, pt agreeable to plan. - Lab Interpretations Lab Results: Total Bilirubin 0.3 mg/dL (0.2-1.3) 08/05/18 05:47 AST 32 U/L (14-36) 08/05/18 05:47 ALT 25 U/L (7-56) 08/05/18 05:47 Alkaline Phosphatase 75 U/L (38-126) 08/05/18 05:47 Total Protein 7.5 g/dL (5.8-8.3) 08/05/18 05:47 Albumin 4.2 g/dL (3.0-4.8) 08/05/18 05:47 Globulin 3.3 gm/dL 08/05/18 05:47 Albumin/Globulin Ratio 1.3 (1.1-1.8) 08/05/18 05:47 - RAD Interpretation Radiology Orders: 08/05/18 05:41 DUPLEX LOWER EXTRM VEIN RIGHT [US] Stat - Medication Orders Current Medication Orders: Discontinued Medications Acetaminophen (Tylenol 325mg Tab) 975 mg PO STAT STA Stop: 08/05/18 05:56 Last Admin: 08/05/18 06:04 Dose: 975 mg - Scribe Statement The provider has reviewed the documentation as recorded by the Arabella Lares Provider Scribe Attestation: All medical record entries made by the Kellieibe were at my direction and personally dictated by me. I have reviewed the chart and agree that the record accurately reflects my personal performance of the history, physical exam, medical decision making, and the department course for this patient. I have also personally directed, reviewed, and agree with the discharge instructions and disposition. Disposition/Present on Arrival - Present on Arrival Any Indicators Present on Arrival: No History of DVT/PE: No History of Uncontrolled Diabetes: No Urinary Catheter: No History of Decub. Ulcer: No History Surgical Site Infection Following: None - Disposition Have Diagnosis and Disposition been Completed?: Yes Diagnosis: Leg pain, right Disposition: HOME/ ROUTINE Disposition Time: 07:48 Patient Problems: Current Active Problems Problem Status Onset Leg pain, right Acute Condition: STABLE Discharge Instructions (ExitCare): Muscle and Bone Pain (DC) Additional Instructions: follow up with your primary care doctor or one we have reccomended for you leg spasms. ETHAN GIPSON, thank you for letting us take care of you today. Your provider was Deo Barone and you were treated for LEG PAIN. The emergency medical care you received today was directed at your acute symptoms. If you were prescribed any medication, please fill it and take as directed. It may take several days for your symptoms to resolve. Return to the Emergency Department if your symptoms worsen, do not improve, or if you have any other problems. Please contact your doctor or call one of the physicians/clinics you have been referred to that are listed on the Patient Visit Information form that is included in your discharge packet. Bring any paperwork you were given at discharge with you along with any medications you are taking to your follow up visit. Our treatment cannot replace ongoing medical care by a primary care provider outside of the emergency department. Thank you for allowing the [facility] team to be part of your care today. If you had an X-Ray or CT scan: A Radiologist will review the ED reading if any change in treatment is needed we will contact you. If you had a blood, urine, or wound culture: It will take several days for the results, if any change in treatment is needed we will contact you. If you had an STI test: It will take 48 hours for the results. Please call after 1 week if you have not heard back. Referrals: [facility] [Outside] - Follow up with primary [facility] [Outside] - Follow up with primary [facility] [Outside] - Follow up with primary Concepcion Parry MD [Medical Doctor] - Follow up with primary Forms: [employer] (Chinese)
[2018-08-05 07:57] VITALS: RESP 16
[2018-08-05 08:07] VITALS: BP 120/50; PULSE 65; O2SAT 98
--- NOTE | 2018-08-05 09:29 | US ---
PROCEDURE: Right lower extremity venous US HISTORY: Leg pain and swelling. Evaluate for DVT. PHYSICIAN(S): Demetrius Hoffman M.D. TECHNIQUE: Duplex sonography and color-flow Doppler with graded compression were used to evaluate the deep venous system of the right lower extremity. FINDINGS: The visualized deep venous system of the right lower extremity is sonographically normal and compressible. Normal waveforms and augmentation are seen. There is no sonographic evidence for deep venous thrombosis in the visualized segments of the right lower extremity. IMPRESSION: 1. No sonographic evidence for deep venous thrombosis in the visualized segments of the right lower extremity.
== END 2018-08-05 08:06 | disposition home or self-care (01) ==
LOC: ED 05:22
DX: M79.604 Pain in right leg (principal); I10 Essential (primary) hypertension

== ENCOUNTER 2018-08-11 09:58 | Observation (INO) | payer MEDICARE ==
[2018-08-11 10:12] VITALS: BMI 24.6
[2018-08-11 11:13] LABS: BASO # 0.01 K/mm3 (0.0-2.0); BASO % 0.2 % (0.0-3.0); EOS % 0.6 % (1.5-5.0); HEMOGLOBIN 12.5 g/dL (12.0-16.0); LYMPH % 41.5 % (22.0-35.0); MEAN CELL VOLUME 90.5 fl (80.0-105.0); MEAN CORPUSCULAR HEMOGLOBIN 29.6 pg (25.0-35.0); MEAN CORPUSCULAR HGB CONC 32.6 g/dl (31.0-37.0); MEAN PLATELET VOLUME 10.3 fl (7.0-11.0); MONO # 0.4 (0.1-0.6); MONO % 7.3 % (1.0-6.0); RBC 4.23 10^6/uL (3.5-6.1); RED CELL DISTRIBUTION WIDTH 13.1 % (11.5-14.5); WHITE BLOOD COUNT 4.8 10^3/uL (4.5-11.0)
[2018-08-11 11:16] LABS: PH,URINE 6.5 (4.7-8.0); URINE BILIRUBIN NEGATIVE (NEGATIVE); URINE BLOOD NEGATIVE (NEGATIVE); URINE GLUCOSE (UA) NEGATIVE (NEGATIVE); URINE LEUKOCYTE ESTERASE TRACE Leu/uL (NEGATIVE); URINE PROTEIN NEGATIVE mg/dL (<30 mg/dL); URINE UROBILINOGEN 0.2 E.U./dL (<1 E.U./dL)
[2018-08-11 11:17] LABS: URINE APPEARANCE CLEAR (CLEAR); URINE COLOR YELLOW (YELLOW)
[2018-08-11 11:20] LABS: ALB/GLOB RATIO 1.2 (1.1-1.8); ALBUMIN 4.1 g/dL (3.0-4.8); ALT/SGPT 19 U/L (7-56); AST/SGOT 30 U/L (14-36); BLOOD UREA NITROGEN 11 mg/dL (7-21); CALCIUM 9.4 mg/dL (8.4-10.5); GFR NON-AFRICAN AMERICAN > 60
[2018-08-11 11:22] LABS: URINE BACTERIA SMALL /hpf; URINE RBC 0 - 2 /hpf (0-2)
[2018-08-11 11:23] LABS: URINE AMORPHOUS SEDIMENT SMALL /hpf
[2018-08-11 11:31] LABS: TROPONIN I < 0.01 ng/mL
--- NOTE | 2018-08-11 12:24 | RAD ---
Date of service: 08/11/2018 HISTORY: palpitations/cp COMPARISON: 04/03/2018 TECHNIQUE: 1 view obtained. FINDINGS: LUNGS: No active pulmonary disease. PLEURA: No significant pleural effusion identified, no pneumothorax apparent. CARDIOVASCULAR: No aortic atherosclerotic calcification present. Normal cardiac size. No pulmonary vascular congestion. OSSEOUS STRUCTURES: No significant abnormalities. VISUALIZED UPPER ABDOMEN: Normal. OTHER FINDINGS: None. IMPRESSION: No active disease.
--- NOTE | 2018-08-11 12:40 | ED PDOC ---
Arrival/HPI - General Chief Complaint: Palpitations Time Seen by Provider: 08/11/18 10:17 Historian: Patient - History of Present Illness Narrative History of Present Illness (Text): 08/11/18 12:55 63-year-old female with a history of hypertension presents today with chest pain and palpitations. Patient states that she was woken up with chest pain pressure and palpitations early this morning. Patient states since then she has been unable to go back to sleep. Patient states that the palpitations are intermittent. Patient states they lasted for about an hour. Patient states that they again returned this morning. Patient denies palpitations at present time but is complaining of a slight chest pressure. She denies shortness of breath. No abdominal pain. No nausea vomiting diarrhea constipation. No dizziness or weakness. No other complaints Past Medical History - Provider Review Nursing Documentation Reviewed: Yes - Travel History Have you recently traveled outside [place] w/in the past 3 mons?: No - Infectious Disease Hx of Infectious Diseases: None - Cardiac Hx Cardiac Disorders: Yes Hx Hypertension: Yes - Pulmonary Hx Respiratory Disorders: No - Neurological Hx Neurological Disorder: No - HEENT Hx HEENT Disorder: No - Renal Hx Renal Disorder: No - Endocrine/Metabolic Hx Endocrine Disorders: No - Hematological/Oncological Hx Blood Disorders: No - Integumentary Hx Dermatological Disorder: No - Musculoskeletal/Rheumatological Hx Musculoskeletal Disorders: No - Gastrointestinal Hx Gastrointestinal Disorders: No - Genitourinary/Gynecological Other/Comment: Fibroids -- myomectomy - Psychiatric Hx Psychophysiologic Disorder: No Hx Substance Use: No - Surgical History Other/Comment: myomectomy 1992 x 2 - Anesthesia Hx Anesthesia: Yes Hx Anesthesia Reactions: No Hx Malignant Hyperthermia: No Family/Social History - Physician Review Nursing Documentation Reviewed: Yes Family/Social History: Unknown Family HX Smoking Status: Never Smoked Hx Alcohol Use: No Hx Substance Use: No Allergies/Home Meds Allergies/Adverse Reactions: Allergies No Known Allergies Allergy (Verified 08/11/18 10:12) Home Medications: Home Meds Medication Instructions Recorded Confirmed amLODIPine [Norvasc] 10 mg PO DAILY 04/03/18 08/11/18 Review of Systems - Review of Systems Constitutional: absent: Fatigue, Fevers Respiratory: absent: SOB, Cough Cardiovascular: Chest Pain, Palpitations Gastrointestinal: absent: Abdominal Pain, Constipation, Diarrhea, Nausea, Vomiting Musculoskeletal: absent: Arthralgias Skin: absent: Rash, Pruritis Neurological: absent: Headache, Dizziness Psychiatric: absent: Anxiety, Depression Physical Exam Vital Signs Reviewed: Yes Vital Signs Temp Pulse Resp BP Pulse Ox 08/11/18 09:58 98.4 F 69 18 102/66 99 Temperature: Afebrile Blood Pressure: Normal Pulse: Regular Respiratory Rate: Normal Appearance: Positive for: Well-Appearing, Non-Toxic, Comfortable Pain Distress: None Mental Status: Positive for: Alert and Oriented X 3 - Systems Exam Head: Present: Atraumatic Mouth: Present: Moist Mucous Membranes Neck: Present: Normal Range of Motion Respiratory/Chest: Present: Clear to Auscultation, Good Air Exchange. No: Respiratory Distress, Accessory Muscle Use Cardiovascular: Present: Regular Rate and Rhythm, Normal S1, S2. No: Murmurs Abdomen: No: Tenderness, Distention, Rebound, Guarding Back: Present: Normal Inspection. No: CVA Tenderness Lower Extremity: No: Edema Neurological: Present: GCS=15, Speech Normal Skin: Present: Warm, Dry, Normal Color. No: Rashes Psychiatric: Present: Alert, Oriented x 3 Medical Decision Making ED Course and Treatment: 08/11/18 12:58 Pt with chest pain and palpitations. Vitals stable. cbc; within normal limits cmp; within normal limits trop: Within normal limits ekg; normal sinus rhythm at 67 bpm normal axis LVH no ST elevations cxr: No infiltrate or effusion ASA given p.o. pt reassessment; resting comfortably no distress case discussed with Dr. Finnegan will Admit observational status to Tele for chest pain r/o acs. All aspects of this case were discussed the attending of record. impression; chest pain Admit observational status to remote tele - Lab Interpretations Lab Results: Troponin I < 0.01 ng/mL 08/11/18 10:56 NT-Pro-B Natriuret Pep 56.0 pg/mL (0-450) 08/11/18 10:56 Total Bilirubin 0.5 mg/dL (0.2-1.3) 08/11/18 10:56 AST 30 U/L (14-36) 08/11/18 10:56 ALT 19 U/L (7-56) 08/11/18 10:56 Alkaline Phosphatase 67 U/L (38-126) 08/11/18 10:56 Total Protein 7.4 g/dL (5.8-8.3) 08/11/18 10:56 Albumin 4.1 g/dL (3.0-4.8) 08/11/18 10:56 Globulin 3.3 gm/dL 08/11/18 10:56 Albumin/Globulin Ratio 1.2 (1.1-1.8) 08/11/18 10:56 Urine Color Yellow (YELLOW) 08/11/18 10:56 Urine Appearance Clear (CLEAR) 08/11/18 10:56 Urine pH 6.5 (4.7-8.0) 08/11/18 10:56 Ur Specific [place] <= 1.005 (1.005-1.035) 08/11/18 10:56 Urine Protein Negative mg/dL (<30 mg/dL) 08/11/18 10:56 Urine Glucose (UA) Negative mg/dL (NEGATIVE) 08/11/18 10:56 Urine Ketones Negative mg/dL (NEGATIVE) 08/11/18 10:56 Urine Blood Negative (NEGATIVE) 08/11/18 10:56 Urine Nitrate Negative (NEGATIVE) 08/11/18 10:56 Urine Bilirubin Negative (NEGATIVE) 08/11/18 10:56 Urine Urobilinogen 0.2 E.U./dL (<1 E.U./dL) 08/11/18 10:56 Ur Leukocyte Esterase Trace Lorenzo/uL (NEGATIVE) H 08/11/18 10:56 Urine RBC 0 - 2 /hpf (0-2) 08/11/18 10:56 Urine WBC 2 - 5 /hpf (0-6) 08/11/18 10:56 Ur Epithelial Cells 4 - 5 /hpf (0-5) 08/11/18 10:56 Amorphous Sediment Small /hpf (NONE) 08/11/18 10:56 Urine Bacteria Small /hpf (NONE) 08/11/18 10:56 - RAD Interpretation Radiology Orders: 08/11/18 10:30 CHEST PORTABLE [RAD] Stat - Medication Orders Current Medication Orders: Discontinued Medications Aspirin (Aspirin) 325 mg PO STAT STA Stop: 08/11/18 12:24 Disposition/Present on Arrival - Present on Arrival Any Indicators Present on Arrival: No History of DVT/PE: No History of Uncontrolled Diabetes: No Urinary Catheter: No History of Decub. Ulcer: No History Surgical Site Infection Following: None - Disposition Have Diagnosis and Disposition been Completed?: Yes Diagnosis: Chest pain, Palpitations Disposition: HOSPITALIZED Disposition Time: 12:00 Patient Plan: Observation Patient Problems: Current Active Problems Problem Status Onset Chest pain Acute Palpitations Acute Condition: FAIR
--- NOTE | 2018-08-11 13:27 | CP.PCM.HP ---
<José MiguelMl - Last Filed: 08/11/18 14:06> History of Present Illness - History of Present Illness History of Present Illness: HISTORY & PHYSICAL NOTE FOR HOSPITALIST SERVICE- DR. ADRIAN Valdez PGY1 63 y/o F with PMH of HTN, HLD, GERD presents to ED with complaints of 3/10 severity, L sided chest pain that she describes as intermittent, dull, pressure- like, non-radiating that has been going on for several weeks but has recently worsened. She reports the pain had woken her up from in the morning around 6 am which had prompted her visit to the ED. She reports pain comes and goes She reports pain is not associated with exertion, or any inciting emotions, or activities or aggravated by anything in particular. She had taken 2 baby aspirin in the am which had alleviated the pain, however the pain had returned a few hours later. She denies any associated fevers, chills, headache, dizziness, chest palpitations, shortness of breath, nausea, vomiting, constipation, diarrhea, dysuria. She report she regularly checks her BP at home, and noticed that she sometimes has an elevated pulse in 100s. PMH: HTN, HLD, GERd All: NKDA PSH: myomectomy x 2 (1993) SH: Denies ETOH, tobacco, illicit drug use. Lives alone. Previously lived in [facility]: Recently visited [facility] for EKG & Echocardiogram. She was scheduled for stress test in 03/2018 however did not attend [facility]: Mother: HTN, DM2, Father: HTN, DM2 Meds: Amlodipine 10mg PMD: Dr. Medrano Cardio: Dr. Barragan Pharm: [facility] From: Home Present on Admission - Present on Admission Any Indicators Present on Admission: No Review of Systems - Review of Systems Review of Systems: per HPI Past Patient History - Infectious Disease Hx of Infectious Diseases: None - Past Social History Smoking Status: Never Smoked - CARDIAC Hx Cardiac Disorders: Yes Hx Hypertension: Yes - PULMONARY Hx Respiratory Disorders: No - NEUROLOGICAL Hx Neurological Disorder: No - HEENT Hx HEENT Problems: No - RENAL Hx Chronic Kidney Disease: No - ENDOCRINE/METABOLIC Hx Endocrine Disorders: No - HEMATOLOGICAL/ONCOLOGICAL Hx Blood Disorders: No - INTEGUMENTARY Hx Dermatological Problems: No - MUSCULOSKELETAL/RHEUMATOLOGICAL Hx Musculoskeletal Disorders: No - GASTROINTESTINAL Hx Gastrointestinal Disorders: No - GENITOURINARY/GYNECOLOGICAL Other/Comment: Fibroids -- myomectomy - PSYCHIATRIC Hx Psychophysiologic Disorder: No Hx Substance Use: No - SURGICAL HISTORY Other/Comment: myomectomy 1992 x 2 - ANESTHESIA Hx Anesthesia: Yes Hx Anesthesia Reactions: No Hx Malignant Hyperthermia: No Meds Home Medications: Home Medication List Medication Instructions Recorded Confirmed Type Aspirin [Ecotrin] 81 mg PO DAILY #0 tabec 08/12/18 Rx Metoprolol Succinate XL [Toprol XL] 25 mg PO DAILY #14 tab 08/12/18 Rx Allergies/Adverse Reactions: Allergies Allergy/AdvReac Type Severity Reaction Status Date / Time No Known Allergies Allergy Verified 08/11/18 13:42 Physical Exam - Constitutional Appears: Well, Non-toxic, No Acute Distress - Head Exam Head Exam: NORMAL INSPECTION, NORMOCEPHALIC - Eye Exam Eye Exam: EOMI, Normal appearance - ENT Exam ENT Exam: Mucous Membranes Moist, Normal Exam - Neck Exam Neck exam: Positive for: Normal Inspection - Respiratory Exam Respiratory Exam: Clear to Auscultation Bilateral, NORMAL BREATHING PATTERN - Cardiovascular Exam Cardiovascular Exam: REGULAR RHYTHM, +S1, +S2 - GI/Abdominal Exam GI & Abdominal Exam: Normal Bowel Sounds, Soft - Extremities Exam Extremities exam: Positive for: normal inspection. Negative for: calf tenderness - Back Exam Back exam: NORMAL INSPECTION - Neurological Exam Neurological exam: Alert, Oriented x3 - Psychiatric Exam Psychiatric exam: Normal Affect, Normal Mood - Skin Skin Exam: Dry, Intact, Warm Results - Vital Signs Recent Vital Signs: Last Vital Signs Temp 98.4 F 08/11/18 09:58 Pulse 69 08/11/18 09:58 Resp 18 08/11/18 09:58 BP 102/66 08/11/18 09:58 Pulse Ox 99 08/11/18 09:58 - Labs Result Diagrams: 08/11/18 10:56 08/11/18 10:56 Labs: Laboratory Results - last 24 hr 08/11/18 08/11/18 08/11/18 10:56 10:56 10:56 WBC 4.8 RBC 4.23 Hgb 12.5 Hct 38.3 MCV 90.5 MCH 29.6 MCHC 32.6 RDW 13.1 Plt Count 264 MPV 10.3 Neut % (Auto) 50.4 Lymph % (Auto) 41.5 H Haakon % (Auto) 7.3 H Eos % (Auto) 0.6 L Baso % (Auto) 0.2 Lymph # (Auto) 2.0 Haakon # (Auto) 0.4 Eos # (Auto) 0.0 Baso # (Auto) 0.01 Absolute Neuts (auto) 2.42 Sodium 139 Potassium 4.2 Chloride 102 Carbon Dioxide 27 Anion Gap 13 BUN 11 Creatinine 0.9 Est GFR ( Amer) > 60 Est GFR (Non-Af Amer) > 60 Random Glucose 78 Calcium 9.4 Total Bilirubin 0.5 AST 30 ALT 19 Alkaline Phosphatase 67 Lactate Dehydrogenase 445 Total Creatine Kinase 96 Troponin I < 0.01 NT-Pro-B Natriuret Pep 56.0 Total Protein 7.4 Albumin 4.1 Globulin 3.3 Albumin/Globulin Ratio 1.2 Urine Color Yellow Urine Appearance Clear Urine pH 6.5 Ur Specific [place] <= 1.005 Urine Protein Negative Urine Glucose (UA) Negative Urine Ketones Negative Urine Blood Negative Urine Nitrate Negative Urine Bilirubin Negative Urine Urobilinogen 0.2 Ur Leukocyte Esterase Trace H Urine RBC 0 - 2 Urine WBC 2 - 5 Ur Epithelial Cells 4 - 5 Amorphous Sediment Small Urine Bacteria Small Assessment & Plan - Assessment and Plan (Free Text) Assessment: 63 y/o F with PMH of HTN, HLD, GERD admitted for chest pain and to rule out ACS Plan: Chest Pain r/o ACS EKG showed no acute ST/T waves changes. Atrial enlargement, LVH. HR: 61bpm. QTc: 481ms. Initial troponin (-). Pain is reproducible to palpitation. CXR: no acute findings trend troponin q6h start ASA obtain lipid panel, Hgb A1c, TSH Will start statin, intensity based on lipid panel Cardiology consult: Dr. Metz HTN: Continue amlodipine 10mg HLD: Will start statin, intensity based on lipid panel process design engineer consult DVT ppx: LVX Case reviewed with attending physician, Dr. Adrian Valdez PGY1 <Mariano Finnegan - Last Filed: 08/12/18 15:34> Results - Vital Signs Recent Vital Signs: Last Vital Signs Temp 98.2 F 08/12/18 06:00 Pulse 56 L 08/12/18 06:00 Resp 20 08/12/18 06:00 BP 112/69 08/12/18 09:06 Pulse Ox 98 08/12/18 06:00 - Labs Result Diagrams: 08/12/18 07:00 08/12/18 07:00 Labs: Laboratory Results - last 24 hr 08/11/18 08/11/18 08/11/18 10:56 17:12 23:35 WBC RBC Hgb Hct MCV MCH MCHC RDW Plt Count MPV Neut % (Auto) Lymph % (Auto) Haakon % (Auto) Eos % (Auto) Baso % (Auto) Lymph # (Auto) Haakon # (Auto) Eos # (Auto) Baso # (Auto) Absolute Neuts (auto) Sodium Potassium Chloride Carbon Dioxide Anion Gap BUN Creatinine Est GFR ( Amer) Est GFR (Non-Af Amer) Random Glucose Hemoglobin A1c 5.2 Calcium Phosphorus Magnesium Total Bilirubin AST ALT Alkaline Phosphatase Troponin I < 0.01 < 0.01 Total Protein Albumin Globulin Albumin/Globulin Ratio 08/12/18 08/12/18 07:00 07:00 WBC 4.1 L RBC 4.47 Hgb 13.0 Hct 40.8 MCV 91.3 MCH 29.1 MCHC 31.9 RDW 13.1 Plt Count 269 MPV 10.3 Neut % (Auto) 52.8 Lymph % (Auto) 38.8 H Haakon % (Auto) 7.0 H Eos % (Auto) 1.2 L Baso % (Auto) 0.2 Lymph # (Auto) 1.6 Haakon # (Auto) 0.3 Eos # (Auto) 0.1 Baso # (Auto) 0.01 Absolute Neuts (auto) 2.17 Sodium 138 Potassium 4.4 Chloride 103 Carbon Dioxide 30 Anion Gap 10 BUN 11 Creatinine 0.8 Est GFR ( Amer) > 60 Est GFR (Non-Af Amer) > 60 Random Glucose 92 Hemoglobin A1c Calcium 9.2 Phosphorus 3.1 Magnesium 2.3 H Total Bilirubin 0.6 AST 39 H D ALT 21 Alkaline Phosphatase 63 Troponin I Total Protein 7.5 Albumin 4.1 Globulin 3.4 Albumin/Globulin Ratio 1.2 Attending/Attestation - Attestation I have personally seen and examined this patient.: Yes I have fully participated in the care of the patient.: Yes I have reviewed all pertinent clinical information: Yes Notes (Text): 08/12/18 15:31 Attending note; Patient Seen and examined with resident and ER. Patient is alert and awake. Complaining of left-sided chest pain. Denies any fevers, chills. Denies any cough or sputum production. 1. Left Sided chest pain; rule out acute coronary syndrome. Possible musculoskeletal component. EKG showed nonspecific changes. Troponin is negative. Admit to telemetry. Patient had recent echocardiogram Which was normal. Outpatient stress test scheduled but did not get the test done. Will follow up with cardiology. Continue aspirin. 2. Hypertension; continue Norvasc. Upon discharge the patient will follow up with PMD Dr. Medrano.
[2018-08-11] MEDS: Enoxaparin 40 mg Syringe SC SCH (14:26)
[2018-08-11 15:00] LABS: HDL CHOLESTEROL 39 mg/dL (29-60)
[2018-08-11 15:11] LABS: LDL CHOLESTEROL 117 mg/dL (0-129)
[2018-08-11] MEDS ORDERED: Pneumococcal 23-Valent Vaccine IM ONE (17:44)
--- NOTE | 2018-08-11 19:09 | CARD ---
APPROVED REPORT Date of service: 08/11/2018 EKG Measurement Heart [id number] <Conclusion> Normal sinus rhythm Possible Left atrial enlargement Left ventricular hypertrophy Nonspecific T wave abnormality Abnormal ECG
[2018-08-12 07:39] LABS: BASO # 0.01 K/mm3 (0.0-2.0); BASO % 0.2 % (0.0-3.0); EOS # 0.1 (0.0-0.7); EOS % 1.2 % (1.5-5.0); LYMPH # 1.6 (1.2-3.4); LYMPH % 38.8 % (22.0-35.0); MEAN CELL VOLUME 91.3 fl (80.0-105.0); MEAN CORPUSCULAR HEMOGLOBIN 29.1 pg (25.0-35.0); MEAN CORPUSCULAR HGB CONC 31.9 g/dl (31.0-37.0); MEAN PLATELET VOLUME 10.3 fl (7.0-11.0); MONO # 0.3 (0.1-0.6); RBC 4.47 10^6/uL (3.5-6.1); RED CELL DISTRIBUTION WIDTH 13.1 % (11.5-14.5); WHITE BLOOD COUNT 4.1 10^3/uL (4.5-11.0)
[2018-08-12 08:06] LABS: ALB/GLOB RATIO 1.2 (1.1-1.8); ALBUMIN 4.1 g/dL (3.0-4.8); ALT/SGPT 21 U/L (7-56); AST/SGOT 39 U/L (14-36); BLOOD UREA NITROGEN 11 mg/dL (7-21); CALCIUM 9.2 mg/dL (8.4-10.5); GFR NON-AFRICAN AMERICAN > 60
[2018-08-12] MEDS: Enoxaparin 40 mg Syringe SC SCH (09:06)
[2018-08-12 09:07] VITALS: BP 112/69
[2018-08-12 10:14] VITALS: PULSE 56; RESP 20; TEMP 98.2; O2SAT 98
--- NOTE | 2018-08-12 13:16 | CON ---
DATE OF CONSULTATION: 08/12/2018 CARDIOLOGY CONSULTATION HISTORY: The patient is a 63-year-old woman, who presented with atypical chest pain associated with palpitations The patient has no previous cardiac history. She does suffer from hypertension, for which she is taking Norvasc. No diabetes mellitus noted. No previous myocardial infarction. SOCIAL HISTORY: The patient does not smoke. REVIEW OF SYSTEMS: Fourteen-point review of systems is reviewed in detail. All cardiac symptomatology is all resolved. PHYSICAL EXAMINATION: VITAL SIGNS: Blood pressure is 112/69, heart rate is in the 60s. NECK: Negative JVD. LUNGS: Without rales. CARDIAC: Heart rate S1, S2. EXTREMITIES: Without edema. EKG shows normal sinus rhythm with no acute changes. LABORATORY DATA: Troponins are negative x3. BUN and creatinine are unremarkable. Hemoglobin is 13. IMPRESSION: 1. Atypical chest pain. 2. History of palpitations. 3. History of hypertension. 4. There is some evidence of acute coronary syndrome. PLAN: Given these findings, I would change her antihypertensive medications from Norvasc to a beta fidelina. We will arrange for an outpatient stress test and echocardiogram. Demetrius Metz MD
--- NOTE | 2018-08-12 15:37 | CP.PCM.DIS ---
<Ml Valdez - Last Filed: 08/12/18 15:29> Provider - Provider Date of Admission: 08/11/18 12:54 Attending physician: Mariano Finnegan MD Consults: 08/11/18 13:17 Physician Consult Routine Comment: Consulting Provider: Demetrius Metz Consulting Physician: Demetrius Metz Reason for Consult: chest pain rule out ACS 08/11/18 17:44 Inpatient [employer] Core Measures Referral Routine Comment: Physician Instructions: Reason For Exam: EVALUATION Transition In Care/Readmission Reduction Routine Comment: Physician Instructions: Reason For Exam: EVALUATION Time Spent in preparation of Discharge (in minutes): 45 Diagnosis - Discharge Diagnosis (1) Musculoskeletal chest pain Status: Resolved (2) Palpitations Status: Resolved (3) Hypertension Status: Chronic Hospital Course - Lab Results Lab Results: Micro Results 08/11/18 Unknown Urine,Clean Catch Urine Culture - Final No Growth (<1,000 CFU/ML) Most Recent Lab Values WBC 4.1 10^3/uL (4.5-11.0) L 08/12/18 07:00 RBC 4.47 10^6/uL (3.5-6.1) 08/12/18 07:00 Hgb 13.0 g/dL (12.0-16.0) 08/12/18 07:00 Hct 40.8 % (36.0-48.0) 08/12/18 07:00 MCV 91.3 fl (80.0-105.0) 08/12/18 07:00 MCH 29.1 pg (25.0-35.0) 08/12/18 07:00 MCHC 31.9 g/dl (31.0-37.0) 08/12/18 07:00 RDW 13.1 % (11.5-14.5) 08/12/18 07:00 Plt Count 269 10^3/uL (120.0-450.0) 08/12/18 07:00 MPV 10.3 fl (7.0-11.0) 08/12/18 07:00 Neut % (Auto) 52.8 % (50.0-68.0) 08/12/18 07:00 Lymph % (Auto) 38.8 % (22.0-35.0) H 08/12/18 07:00 [place] % (Auto) 7.0 % (1.0-6.0) H 08/12/18 07:00 Eos % (Auto) 1.2 % (1.5-5.0) L 08/12/18 07:00 Baso % (Auto) 0.2 % (0.0-3.0) 08/12/18 07:00 Lymph # (Auto) 1.6 (1.2-3.4) 08/12/18 07:00 [place] # (Auto) 0.3 (0.1-0.6) 08/12/18 07:00 Eos # (Auto) 0.1 (0.0-0.7) 08/12/18 07:00 Baso # (Auto) 0.01 K/mm3 (0.0-2.0) 08/12/18 07:00 Absolute Neuts (auto) 2.17 (1.4-6.5) 08/12/18 07:00 Sodium 138 mmol/L (132-148) 08/12/18 07:00 Potassium 4.4 mmol/L (3.6-5.0) 08/12/18 07:00 Chloride 103 mmol/L (98-107) 08/12/18 07:00 Carbon Dioxide 30 mmol/L (21-33) 08/12/18 07:00 Anion Gap 10 (10-20) 08/12/18 07:00 BUN 11 mg/dL (7-21) 08/12/18 07:00 Creatinine 0.8 mg/dl (0.7-1.2) 08/12/18 07:00 Est GFR ( Amer) > 60 08/12/18 07:00 Est GFR (Non-Af Amer) > 60 08/12/18 07:00 Random Glucose 92 mg/dL (70-110) 08/12/18 07:00 Hemoglobin A1c 5.2 % (4.2-6.5) 08/11/18 10:56 Calcium 9.2 mg/dL (8.4-10.5) 08/12/18 07:00 Phosphorus 3.1 mg/dL (2.5-4.5) 08/12/18 07:00 Magnesium 2.3 mg/dL (1.7-2.2) H 08/12/18 07:00 Total Bilirubin 0.6 mg/dL (0.2-1.3) 08/12/18 07:00 AST 39 U/L (14-36) H D 08/12/18 07:00 ALT 21 U/L (7-56) 08/12/18 07:00 Alkaline Phosphatase 63 U/L (38-126) 08/12/18 07:00 Lactate Dehydrogenase 445 U/L (333-699) 08/11/18 10:56 Total Creatine Kinase 96 U/L (35-230) 08/11/18 10:56 Troponin I < 0.01 ng/mL 08/11/18 23:35 NT-Pro-B Natriuret Pep 56.0 pg/mL (0-450) 08/11/18 10:56 Total Protein 7.5 g/dL (5.8-8.3) 08/12/18 07:00 Albumin 4.1 g/dL (3.0-4.8) 08/12/18 07:00 Globulin 3.4 gm/dL 08/12/18 07:00 Albumin/Globulin Ratio 1.2 (1.1-1.8) 08/12/18 07:00 Triglycerides 54 mg/dL (35-160) 08/11/18 10:33 Cholesterol 178 mg/dL (130-200) 08/11/18 10:33 LDL Cholesterol Direct 117 mg/dL (0-129) 08/11/18 10:33 HDL Cholesterol 39 mg/dL (29-60) 08/11/18 10:33 TSH 3rd Generation 1.68 mIU/mL (0.46-4.68) 08/11/18 10:56 Urine Color Yellow (YELLOW) 08/11/18 10:56 Urine Appearance Clear (CLEAR) 08/11/18 10:56 Urine pH 6.5 (4.7-8.0) 08/11/18 10:56 Ur Specific Early <= 1.005 (1.005-1.035) 08/11/18 10:56 Urine Protein Negative mg/dL (<30 mg/dL) 08/11/18 10:56 Urine Glucose (UA) Negative mg/dL (NEGATIVE) 08/11/18 10:56 Urine Ketones Negative mg/dL (NEGATIVE) 08/11/18 10:56 Urine Blood Negative (NEGATIVE) 08/11/18 10:56 Urine Nitrate Negative (NEGATIVE) 08/11/18 10:56 Urine Bilirubin Negative (NEGATIVE) 08/11/18 10:56 Urine Urobilinogen 0.2 E.U./dL (<1 E.U./dL) 08/11/18 10:56 Ur Leukocyte Esterase Trace Lorenzo/uL (NEGATIVE) H 08/11/18 10:56 Urine RBC 0 - 2 /hpf (0-2) 08/11/18 10:56 Urine WBC 2 - 5 /hpf (0-6) 08/11/18 10:56 Ur Epithelial Cells 4 - 5 /hpf (0-5) 08/11/18 10:56 Amorphous Sediment Small /hpf (NONE) 08/11/18 10:56 Urine Bacteria Small /hpf (NONE) 08/11/18 10:56 - Hospital Course Hospital Course: Upon Admission 63 y/o F with PMH of HTN, HLD, GERD presents to ED with complaints of 3/10 severity, L sided chest pain that she describes as intermittent, dull, pressure- like, non-radiating that has been going on for several weeks but has recently worsened. She reports the pain had woken her up from in the morning around 6 am which had prompted her visit to the ED. She reports pain comes and goes She reports pain is not associated with exertion, or any inciting emotions, or activities or aggravated by anything in particular. She had taken 2 baby aspirin in the am which had alleviated the pain, however the pain had returned a few hours later. She denies any associated fevers, chills, headache, dizziness, chest palpitations, shortness of breath, nausea, vomiting, constipation, diarrhea, dysuria. She report she regularly checks her BP at home, and noticed that she sometimes has an elevated pulse in 100s. Hospital Course: Chest pain was reproducible on exam. EKG revealed no acute ST/T wave changes, LVH, LAE. Troponin levels were trended q6h and were all negative. BUN/Cr unremarkable, Hgb 13, Cardiology evaluated patient, and deemed "there is some evidence of ACS." CXR: no acute findings. Cardiology had deemed patient stable to discharge with outpatient stress test and echocardiogram. Upon Discharge: Pt is feeling better. CP has resolved. She is not experiencing palpitations. VSS. Labs wnl. Pt to be discharged on the following medication DISCONTINUE amlodipine 10mg START Toprol XL 25mg qd Pt to f/u with Dr. Metz for outpatient stress test and echocardiogram Pt to f/u with PMD, Dr. Medrano Discharge Exam - Head Exam Head Exam: NORMAL INSPECTION, NORMOCEPHALIC - Eye Exam Eye Exam: EOMI, Normal appearance, PERRL - ENT Exam ENT Exam: Mucous Membranes Moist - Neck Exam Neck exam: Normal Inspection - Respiratory Exam Respiratory Exam: NORMAL BREATHING PATTERN, UNREMARKABLE - Cardiovascular Exam Cardiovascular Exam: REGULAR RHYTHM, +S1, +S2 - GI/Abdominal Exam GI & Abdominal Exam: Unremarkable - Extremities Exam Extremities exam: normal inspection - Back Exam Back exam: NORMAL INSPECTION - Neurological Exam Neurological exam: Alert, Oriented x3 - Psychiatric Exam Psychiatric exam: Normal Affect, Normal Mood - Skin Skin Exam: Dry, Intact, Warm Discharge Plan - Discharge Medications Prescriptions: Metoprolol Succinate XL [Toprol XL] 25 mg PO DAILY #14 tab - Follow Up Plan Condition: STABLE Disposition: HOME/ ROUTINE Instructions: Costochondritis (DC), Palpitations (DC), Chest Pain (DC), Chest Pain (GEN) Additional Instructions: Please follow up with your primary care doctor, Dr. Medrano within 3-5 days of discharge from the hospital Please follow up with your outdoor advertising leasing agent, Dr. Metz within 1 week of discharge Please discuss a stress test with your outdoor advertising leasing agent. Please STOP taking the following medication amlodipine 10mg Please START taking the following medication Toprol XL 25mg. Please take 1 tab by mouth daily Please discuss your medications with your primary care doctor and outdoor advertising leasing agent If your symptoms return, or you experience new symptoms, please return to the nearest emergency room Referrals: Prabhakar Medrano DO [Family Provider] - Demetrius Metz MD [Staff Provider] - <Mariano Finnegan - Last Filed: 08/12/18 15:44> Provider - Provider Date of Admission: 08/11/18 12:54 Attending physician: Mariano Finnegan MD Consults: 08/11/18 13:17 Physician Consult Routine Comment: Consulting Provider: Demetrius Metz Consulting Physician: Demetrius Metz Reason for Consult: chest pain rule out ACS 08/11/18 17:44 Inpatient [employer] Core Measures Referral Routine Comment: Physician Instructions: Reason For Exam: EVALUATION Transition In Care/Readmission Reduction Routine Comment: Physician Instructions: Reason For Exam: EVALUATION Hospital Course - Lab Results Lab Results: Micro Results 08/11/18 Unknown Urine,Clean Catch Urine Culture - Final No Growth (<1,000 CFU/ML) Most Recent Lab Values WBC 4.1 10^3/uL (4.5-11.0) L 08/12/18 07:00 RBC 4.47 10^6/uL (3.5-6.1) 08/12/18 07:00 Hgb 13.0 g/dL (12.0-16.0) 08/12/18 07:00 Hct 40.8 % (36.0-48.0) 08/12/18 07:00 MCV 91.3 fl (80.0-105.0) 08/12/18 07:00 MCH 29.1 pg (25.0-35.0) 08/12/18 07:00 MCHC 31.9 g/dl (31.0-37.0) 08/12/18 07:00 RDW 13.1 % (11.5-14.5) 08/12/18 07:00 Plt Count 269 10^3/uL (120.0-450.0) 08/12/18 07:00 MPV 10.3 fl (7.0-11.0) 08/12/18 07:00 Neut % (Auto) 52.8 % (50.0-68.0) 08/12/18 07:00 Lymph % (Auto) 38.8 % (22.0-35.0) H 08/12/18 07:00 [place] % (Auto) 7.0 % (1.0-6.0) H 08/12/18 07:00 Eos % (Auto) 1.2 % (1.5-5.0) L 08/12/18 07:00 Baso % (Auto) 0.2 % (0.0-3.0) 08/12/18 07:00 Lymph # (Auto) 1.6 (1.2-3.4) 08/12/18 07:00 [place] # (Auto) 0.3 (0.1-0.6) 08/12/18 07:00 Eos # (Auto) 0.1 (0.0-0.7) 08/12/18 07:00 Baso # (Auto) 0.01 K/mm3 (0.0-2.0) 08/12/18 07:00 Absolute Neuts (auto) 2.17 (1.4-6.5) 08/12/18 07:00 Sodium 138 mmol/L (132-148) 08/12/18 07:00 Potassium 4.4 mmol/L (3.6-5.0) 08/12/18 07:00 Chloride 103 mmol/L (98-107) 08/12/18 07:00 Carbon Dioxide 30 mmol/L (21-33) 08/12/18 07:00 Anion Gap 10 (10-20) 08/12/18 07:00 BUN 11 mg/dL (7-21) 08/12/18 07:00 Creatinine 0.8 mg/dl (0.7-1.2) 08/12/18 07:00 Est GFR ( Amer) > 60 08/12/18 07:00 Est GFR (Non-Af Amer) > 60 08/12/18 07:00 Random Glucose 92 mg/dL (70-110) 08/12/18 07:00 Hemoglobin A1c 5.2 % (4.2-6.5) 08/11/18 10:56 Calcium 9.2 mg/dL (8.4-10.5) 08/12/18 07:00 Phosphorus 3.1 mg/dL (2.5-4.5) 08/12/18 07:00 Magnesium 2.3 mg/dL (1.7-2.2) H 08/12/18 07:00 Total Bilirubin 0.6 mg/dL (0.2-1.3) 08/12/18 07:00 AST 39 U/L (14-36) H D 08/12/18 07:00 ALT 21 U/L (7-56) 08/12/18 07:00 Alkaline Phosphatase 63 U/L (38-126) 08/12/18 07:00 Lactate Dehydrogenase 445 U/L (333-699) 08/11/18 10:56 Total Creatine Kinase 96 U/L (35-230) 08/11/18 10:56 Troponin I < 0.01 ng/mL 08/11/18 23:35 NT-Pro-B Natriuret Pep 56.0 pg/mL (0-450) 08/11/18 10:56 Total Protein 7.5 g/dL (5.8-8.3) 08/12/18 07:00 Albumin 4.1 g/dL (3.0-4.8) 08/12/18 07:00 Globulin 3.4 gm/dL 08/12/18 07:00 Albumin/Globulin Ratio 1.2 (1.1-1.8) 08/12/18 07:00 Triglycerides 54 mg/dL (35-160) 08/11/18 10:33 Cholesterol 178 mg/dL (130-200) 08/11/18 10:33 LDL Cholesterol Direct 117 mg/dL (0-129) 08/11/18 10:33 HDL Cholesterol 39 mg/dL (29-60) 08/11/18 10:33 TSH 3rd Generation 1.68 mIU/mL (0.46-4.68) 08/11/18 10:56 Urine Color Yellow (YELLOW) 08/11/18 10:56 Urine Appearance Clear (CLEAR) 08/11/18 10:56 Urine pH 6.5 (4.7-8.0) 08/11/18 10:56 Ur Specific Early <= 1.005 (1.005-1.035) 08/11/18 10:56 Urine Protein Negative mg/dL (<30 mg/dL) 08/11/18 10:56 Urine Glucose (UA) Negative mg/dL (NEGATIVE) 08/11/18 10:56 Urine Ketones Negative mg/dL (NEGATIVE) 08/11/18 10:56 Urine Blood Negative (NEGATIVE) 08/11/18 10:56 Urine Nitrate Negative (NEGATIVE) 08/11/18 10:56 Urine Bilirubin Negative (NEGATIVE) 08/11/18 10:56 Urine Urobilinogen 0.2 E.U./dL (<1 E.U./dL) 08/11/18 10:56 Ur Leukocyte Esterase Trace Lorenzo/uL (NEGATIVE) H 08/11/18 10:56 Urine RBC 0 - 2 /hpf (0-2) 08/11/18 10:56 Urine WBC 2 - 5 /hpf (0-6) 08/11/18 10:56 Ur Epithelial Cells 4 - 5 /hpf (0-5) 08/11/18 10:56 Amorphous Sediment Small /hpf (NONE) 08/11/18 10:56 Urine Bacteria Small /hpf (NONE) 08/11/18 10:56 Attending/Attestation - Attestation I have personally seen and examined this patient.: Yes I have fully participated in the care of the patient.: Yes I have reviewed all pertinent clinical information, including history, physical exam and plan: Yes Notes (Text): 08/12/18 15:42 Attending note; Patient Seen and examined with resident. Denies any chest pain, shortness of breath. 1. Left Sided chest pain; cardiac enzymes negative. possible musculoskeletal component. Cardiology evaluation appreciated. Outpatient stress test will be arranged. continue aspirin. 2. Hypertension; discontinue Norvasc. Started on metoprolol. Upon discharge the patient will follow up with PMD Dr. Medrano. Follow-up with cardiology Dr. Metz after stress test.
== END 2018-08-12 14:32 | disposition home or self-care (01) ==
LOC: ED 09:58 → ERH 12:54 → 3RSO 15:07
PROVIDERS: ADMIT Internal Medicine; ATTEND Internal Medicine
DX: R07.89 Other chest pain (principal); R00.2 Palpitations; I10 Essential (primary) hypertension; K21.9 Gastro-esophageal reflux disease without esophagitis; E78.5 Hyperlipidemia, unspecified; Z79.82 Long term (current) use of aspirin; Z82.49 Family history of ischemic heart disease and other diseases of the circulatory system; Z83.3 Family history of diabetes mellitus
CPT/HCPCS: 36415; 71045; 80053; 80061; 81001; 82550; 83036; 83615; 83735; 83880; 84100; 84443; 84484; 85025; 87086; 93005; 96372; 99283; G0378; J1650

== ENCOUNTER 2018-08-16 10:27 | Outpatient (CLI) | payer MEDICARE | END 2018-08-16 10:28 | disposition home or self-care (01) | LOC: RAD 10:27 ==

== ENCOUNTER 2018-09-01 09:06 | Outpatient (CLI) | payer MEDICARE | END 2018-09-01 09:07 | disposition home or self-care (01) | LOC: RAD 09:06 ==

== ENCOUNTER 2018-09-05 08:37 | Emergency (ER) | payer MEDICARE ==
[2018-09-05 08:37] VITALS: BMI 24.6
--- NOTE | 2018-09-05 09:04 | ED PDOC ---
Arrival/HPI - General Chief Complaint: High Blood Pressure Time Seen by Provider: 09/05/18 08:38 Historian: Patient - History of Present Illness Narrative History of Present Illness (Text): 09/05/18 09:06 63 year old female, with a past medical history of hypertension, who presents to the emergency department complaining of high blood pressure. Patient reports she was recently changed to Toprol, once a day. She endorses headache yesterday and today in the posterior aspect of the head and upper neck which has now resolved. Currenlty she is asymptomatic. She reports taking her medication and states she went to the pharmacy where her blood pressure was high, causing her to come to the emergency room. Patient reports she has an appointment with Dr. Medrano today. She denies any vision changes, difficulty breathing, chest pain, Palpitations, dizziness, urinary symptoms, or any other somatic complaints. PMD: Dr. Medrano Time/Duration: 24 hours Symptom Onset: Gradual Symptom Course: Unchanged Activities at Onset: Light Context: Home Past Medical History - Provider Review Nursing Documentation Reviewed: Yes Primary Care Provider: Prabhakar Medrano - Infectious Disease Hx of Infectious Diseases: None - Cardiac Hx Cardiac Disorders: Yes Hx Hypertension: Yes - Pulmonary Hx Respiratory Disorders: No - Neurological Hx Neurological Disorder: No - HEENT Hx HEENT Disorder: No - Renal Hx Renal Disorder: No - Endocrine/Metabolic Hx Endocrine Disorders: No - Hematological/Oncological Hx Blood Disorders: No - Integumentary Hx Dermatological Disorder: No - Musculoskeletal/Rheumatological Hx Musculoskeletal Disorders: No - Gastrointestinal Hx Gastrointestinal Disorders: No - Genitourinary/Gynecological Other/Comment: Fibroids -- myomectomy - Psychiatric Hx Psychophysiologic Disorder: No Hx Substance Use: No - Surgical History Other/Comment: myomectomy 1992 x 2 - Anesthesia Hx Anesthesia: Yes Hx Anesthesia Reactions: No Hx Malignant Hyperthermia: No Family/Social History - Physician Review Nursing Documentation Reviewed: Yes Family/Social History: Unknown Family HX Smoking Status: Never Smoked Hx Alcohol Use: No Hx Substance Use: No Allergies/Home Meds Allergies/Adverse Reactions: Allergies No Known Allergies Allergy (Verified 09/05/18 08:54) Review of Systems - Physician Review All systems were reviewed & negative as marked: Yes - Review of Systems Constitutional: absent: Fevers Eyes: absent: Vision Changes Respiratory: absent: SOB Cardiovascular: absent: Chest Pain, Palpitations Gastrointestinal: absent: Abdominal Pain, Nausea, Vomiting Musculoskeletal: absent: Back Pain, Neck Pain Neurological: absent: Headache, Dizziness Endocrine: absent: Diaphoresis Physical Exam Vital Signs Reviewed: Yes Vital Signs Temp Pulse Resp BP Pulse Ox 09/05/18 08:52 97.6 F 67 17 142/82 99 Temperature: Afebrile Blood Pressure: Normal Pulse: Regular Respiratory Rate: Normal Appearance: Positive for: Well-Appearing, Non-Toxic, Comfortable Pain Distress: None Mental Status: Positive for: Alert and Oriented X 3 - Systems Exam Head: Present: Atraumatic, Normocephalic Pupils: Present: PERRL Extroacular Muscles: Present: EOMI Conjunctiva: Present: Normal Mouth: Present: Moist Mucous Membranes Neck: Present: Normal Range of Motion Respiratory/Chest: Present: Clear to Auscultation, Good Air Exchange. No: Respiratory Distress, Accessory Muscle Use Cardiovascular: Present: Regular Rate and Rhythm, Normal S1, S2. No: Murmurs Abdomen: No: Tenderness, Distention, Peritoneal Signs Back: Present: Normal Inspection Upper Extremity: Present: Normal Inspection. No: Cyanosis, Edema Lower Extremity: Present: Normal Inspection. No: Edema Neurological: Present: GCS=15, CN II-XII Intact, Speech Normal, Motor Func Grossly Intact, Normal Sensory Function, Normal Cerebellar Funct, Gait Normal Skin: Present: Warm, Dry, Normal Color. No: Rashes Psychiatric: Present: Alert, Oriented x 3, Normal Insight, Normal Concentration Medical Decision Making ED Course and Treatment: 09/05/18 09:04 Impression: 63 year old female presents to the emergency department complaining of high blood pressure. Differential Diagnosis included but are not limited to: High blood pressure Plan: Hypertension, no clinical indication for labs/bloodwork. Patient is educated on diet, will follow up with Dr. Medrano. If any worsening symptoms, patient advised to return to the emergency department. Prior Visits: Notes and results from previous visits were reviewed. - EKG Interpretation EKG Interpretation (Text): 09/05/18 09:03 EKG reviewed, shows: NSR at 66 bpm with LVH, T wave inversion. Interpreted by ED Physician: Yes - Scribe Statement The provider has reviewed the documentation as recorded by the Scribkiley Yanez All medical record entries made by the Scribe were at my direction and personally dictated by me. I have reviewed the chart and agree that the record accurately reflects my personal performance of the history, physical exam, medical decision making, and the department course for this patient. I have also personally directed, reviewed, and agree with the discharge instructions and disposition. Disposition/Present on Arrival - Present on Arrival Any Indicators Present on Arrival: No History of DVT/PE: No History of Uncontrolled Diabetes: No Urinary Catheter: No History of Decub. Ulcer: No History Surgical Site Infection Following: None - Disposition Have Diagnosis and Disposition been Completed?: Yes Diagnosis: Hypertension Disposition: HOME/ ROUTINE Disposition Time: 09:27 Patient Plan: Discharge Patient Problems: Current Active Problems Problem Status Onset Hypertension Chronic Condition: IMPROVED Discharge Instructions (ExitCare): High Blood Pressure in Adults Additional Instructions: ETHAN GIPSON, thank you for letting us take care of you today. Your p rovider was Yassine Dockery DO and you were treated for High Blood Pressure. The emergency medical care you received today was directed at your acute symptoms. If you were prescribed any medication, please fill it and take as directed. It may take several days for your symptoms to resolve. Return to the Emergency Department if your symptoms worsen, do not improve, or if you have any other problems. Please contact your doctor or call one of the physicians/clinics you have been referred to that are listed on the Patient Visit Information form that is included in your discharge packet. Bring any paperwork you were given at discharge with you along with any medications you are taking to your follow up visit. Our treatment cannot replace ongoing medical care by a primary care provider outside of the emergency department. Thank you for allowing the [facility] team to be part of your care today. If you had an X-Ray or CT scan: A Radiologist will review the ED reading if any change in treatment is needed we will contact you. If you had a blood, urine, or wound culture: It will take several days for the results, if any change in treatment is needed we will contact you. If you had an STI test: It will take 48 hours for the results. Please call after 1 week if you have not heard back. Referrals: Prabhakar Medrano DO [Primary Care Provider] - Follow up with primary Forms: [employer] (Samoan), WORK NOTE
[2018-09-05 09:28] VITALS: TEMP 98.6
[2018-09-05 09:39] VITALS: BP 130/73; PULSE 57; O2SAT 99
[2018-09-05 09:41] VITALS: RESP 18
--- NOTE | 2018-09-05 17:38 | CARD ---
APPROVED REPORT Date of service: 09/05/2018 EKG Measurement Heart [id number] MD [id number] <Conclusion> Normal sinus rhythm Minimal voltage criteria for LVH, may be normal variant Otherwise normal ECG
== END 2018-09-05 09:40 | disposition home or self-care (01) ==
LOC: ED 08:37
DX: I10 Essential (primary) hypertension (principal)

== ENCOUNTER 2018-09-06 21:54 | Emergency (ER) | payer MEDICARE ==
[2018-09-06 22:19] VITALS: RESP 18; TEMP 98.3; BMI 25.0
--- NOTE | 2018-09-06 23:06 | ED PDOC ---
Arrival/HPI - General Chief Complaint: High Blood Pressure Time Seen by Provider: 09/06/18 22:24 Historian: Patient - History of Present Illness Narrative History of Present Illness (Text): 09/06/18 23:04 Zonia Mehta is a 63 year old female, whose past medical history includes hypertension on Toprol, who presents to the ED complaining of high blood pressure. Patient states she took her blood pressure this evening and noted it was elevated at 156/94. Patient notes she recently had the dosage of her blood pressure medication doubled yesterday. Patient was seen in the ED yesterday for similar complaint, noted to be normotensive/asymptomatic. Patient denies any fever, chills, chest pain, shortness of breath, nausea, vomiting, diarrhea, urinary symptoms, back pain, neck pain, dizziness, or any other complaints. Symptom Onset: Gradual Symptom Course: Unchanged Activities at Onset: Light Context: Home Past Medical History - Provider Review Nursing Documentation Reviewed: Yes Primary Care Provider: Prabhakar Medrano - Infectious Disease Hx of Infectious Diseases: None - Cardiac Hx Cardiac Disorders: Yes Hx Hypertension: Yes - Pulmonary Hx Respiratory Disorders: No - Neurological Hx Neurological Disorder: No - HEENT Hx HEENT Disorder: No - Renal Hx Renal Disorder: No - Endocrine/Metabolic Hx Endocrine Disorders: No - Hematological/Oncological Hx Blood Disorders: No - Integumentary Hx Dermatological Disorder: No - Musculoskeletal/Rheumatological Hx Musculoskeletal Disorders: No - Gastrointestinal Hx Gastrointestinal Disorders: No - Genitourinary/Gynecological Other/Comment: Fibroids -- myomectomy - Psychiatric Hx Psychophysiologic Disorder: No Hx Substance Use: No - Surgical History Other/Comment: myomectomy 1992 x 2 - Anesthesia Hx Anesthesia: Yes Hx Anesthesia Reactions: No Hx Malignant Hyperthermia: No Family/Social History - Physician Review Nursing Documentation Reviewed: Yes Family/Social History: Unknown Family HX Smoking Status: Never Smoked Hx Alcohol Use: No Hx Substance Use: No Allergies/Home Meds Allergies/Adverse Reactions: Allergies No Known Allergies Allergy (Verified 09/06/18 22:20) Home Medications: Home Meds Medication Instructions Recorded Confirmed Metoprolol Succinate XL [Toprol XL] 50 mg PO DAILY 09/06/18 09/06/18 Review of Systems - Physician Review All systems were reviewed & negative as marked: Yes - Review of Systems Constitutional: Normal. absent: Fevers Eyes: Normal ENT: Normal Respiratory: Normal. absent: SOB, Cough Cardiovascular: Other (+high blood pressure) Gastrointestinal: Normal. absent: Abdominal Pain, Diarrhea, Nausea, Vomiting Genitourinary Female: Normal. absent: Dysuria, Frequency, Hematuria, Urine Output Changes Musculoskeletal: Normal. absent: Back Pain, Neck Pain Skin: Normal. absent: Rash Neurological: Normal. absent: Headache, Dizziness Endocrine: Normal Hemo/Lymphatic: Normal Psychiatric: Normal Physical Exam Vital Signs Reviewed: Yes Vital Signs Temp Pulse Pulse Resp BP BP Pulse Ox 09/06/18 22:27 79 143/93 H 09/06/18 22:19 98.3 F 72 18 143/93 H 97 Temperature: Afebrile Blood Pressure: Normal Pulse: Regular Respiratory Rate: Normal Appearance: Positive for: Well-Appearing, Non-Toxic, Comfortable Pain Distress: None Mental Status: Positive for: Alert and Oriented X 3 - Systems Exam Head: Present: Atraumatic, Normocephalic Pupils: Present: PERRL Extroacular Muscles: Present: EOMI Conjunctiva: Present: Normal Mouth: Present: Moist Mucous Membranes Neck: Present: Normal Range of Motion Respiratory/Chest: Present: Clear to Auscultation, Good Air Exchange. No: Respiratory Distress, Accessory Muscle Use Cardiovascular: Present: Regular Rate and Rhythm, Normal S1, S2. No: Murmurs Abdomen: No: Tenderness, Distention, Peritoneal Signs Back: Present: Normal Inspection Upper Extremity: Present: Normal Inspection. No: Cyanosis, Edema Lower Extremity: Present: Normal Inspection. No: Edema Neurological: Present: GCS=15, CN II-XII Intact, Speech Normal Skin: Present: Warm, Dry, Normal Color. No: Rashes Psychiatric: Present: Alert, Oriented x 3, Normal Insight, Normal Concentration Medical Decision Making ED Course and Treatment: 09/06/18 23:06 Impression: 63 year old female complaining of high blood pressure, blood pressure on arrival to ED: 143/93. Plan: -- Reassess and disposition Prior Visits: Notes and results from previous visits were reviewed. Progress Notes: - Scribe Statement The provider has reviewed the documentation as recorded by the Arabella Burroughs Provider Scribe Attestation: All medical record entries made by the Scribe were at my direction and personally dictated by me. I have reviewed the chart and agree that the record accurately reflects my personal performance of the history, physical exam, medical decision making, and the department course for this patient. I have also personally directed, reviewed, and agree with the discharge instructions and disposition. Disposition/Present on Arrival - Present on Arrival Any Indicators Present on Arrival: No History of DVT/PE: No History of Uncontrolled Diabetes: No Urinary Catheter: No History of Decub. Ulcer: No History Surgical Site Infection Following: None - Disposition Have Diagnosis and Disposition been Completed?: Yes Diagnosis: Hypertension Disposition: HOME/ ROUTINE Disposition Time: 00:30 Condition: GOOD Discharge Instructions (ExitCare): High Blood Pressure in Adults Forms: [facility] [employer] [facility] (Polish)
[2018-09-06 23:40] VITALS: BP 141/86; PULSE 75; O2SAT 98
== END 2018-09-07 00:29 | disposition home or self-care (01) ==
LOC: ED 21:54
DX: I10 Essential (primary) hypertension (principal)